=== PATIENT | male | born 1975 | race African-American/Black ===

== ENCOUNTER 2020-09-28 15:34 | Inpatient (IN) | payer SELFPAY ==
[~2020-09-28] VITALS: Ht 177.8 cm; Wt 88.2 kg
[~2020-09-28 15:34] MED LIST: LISI10TA16 PO
--- NOTE | 2020-09-28 16:12 | EKG ---
[facility] [address] [place] [address] Test Date: 2020-09-28 Test Time: 16:08:25 Pat Name: FRANCES FELIX Department: Room: Gender: M Shovel Operator: : 1975 Requested By: IDA DOMINGUEZ Order Number: [id number] Reading MD: Measurements Intervals [place] Rate: 112 P: 38 MI: 104 QRS: -2 QRSD: 88 T: -84 QT: 336 QTc: 460 Interpretive Statements SINUS TACHYCARDIA LEFT ATRIAL ABNORMALITY LEFTWARD AXIS QRS(T) CONTOUR ABNORMALITY CONSIDER ANTEROLATERAL MYOCARDIAL DAMAGE ABNORMAL ECG RI6.01 No previous ECG available for comparison
[2020-09-28 16:17] LABS: BASO # 0.1 x10^3/uL (0.0-0.2); BASO % 1 % (0-3); EOS % 0 % (0-3); HEMATOCRIT 43.8 % (39.0-53.0); HEMOGLOBIN 14.4 g/dL (13.0-17.5); LYMPH # 0.7 x10^3/uL (1.0-4.8); LYMPH % 9 % (24-48); MEAN CORPUSCULAR HEMOGLOBIN 31 pg (25-35); MEAN CORPUSCULAR HGB CONC 33 g/dL (31-37); MEAN CORPUSCULAR VOLUME 94 fL (79-100); MONO # 0.5 x10^3/uL (0.0-1.1); MONO % 6 % (0-9); NEUT # 6.6 x10^3/uL (1.8-7.7); NEUT % 84 % (31-73); PLATELET COUNT 171 x10^3/uL (140-400); RED BLOOD COUNT 4.66 x10^6/uL (4.30-5.70); RED CELL DISTRIBUTION WIDTH 15.1 % (11.5-14.5); WHITE BLOOD COUNT 7.8 x10^3/uL (4.0-11.0)
[2020-09-28 16:43] LABS: CALCIUM 8.9 mg/dL (8.5-10.1); CREATININE 6.9 mg/dL (0.7-1.3); GFR 10.4; POTASSIUM 4.2 mmol/L (3.5-5.1)
[2020-09-28 16:48] LABS: ALBUMIN 3.5 g/dL (3.4-5.0); MAGNESIUM 2.5 mg/dL (1.8-2.4); TOTAL BILIRUBIN 0.9 mg/dL (0.2-1.0); TOTAL PROTEIN 7.1 g/dL (6.4-8.2)
--- NOTE | 2020-09-28 17:15 | RAD ---
XR CHEST 1V History: Chest pain. Comparison: None. Technique: AP radiograph of the chest. Findings: Metallic BB projects over the left anterior chest and scapula. Lungs are adequately inflated. Hazy bilateral lower lobe opacities. With linear streaky opacities lef t midlung. No pleural effusion or pneumothorax. Prominent cardiac silhouette. Pulmonary vasculature i s within normal limits. Osseous structures are unremarkable. Impression: 1. Hazy bilateral lower lobe opacities may represent infection or edema. Electronically signed by: Ricardo Amanda MD (09/28/2020 5:13 PM) [facility]
--- NOTE | 2020-09-28 17:34 | PHYS DOC ---
Past Medical History Past Medical History: Hypertension, Renal Failure Past Surgical History: Other Smoking Status: Never Smoker Alcohol Use: None Drug Use: None Adult General Chief Complaint Chief Complaint: SHORTNESS OF BREATH HPI HPI Patient is a 45 year old male with no personal history of hypertension who presents emergency department complaint of new onset of lower extremity swelling. Patient states he has not been on his antihypertensive for 3 years and over the last week he has noted a worsening sensation of bilateral lower extremity edema as well as shortness of breath primarily lays flat or when he is attempting to ambulate. Patient states that he is also been eating poorly and smoking cigarettes again. Denies any chest pain, fever, chills, nausea or vomiting. Review of Systems Review of Systems Constitutional: Denies fever or chills [] Eyes: Denies change in visual acuity, redness, or eye pain [] HENT: Denies nasal congestion or sore throat [] Respiratory: Denies cough or shortness of breath [] Cardiovascular: No additional information not addressed in HPI [] GI: Denies abdominal pain, nausea, vomiting, bloody stools or diarrhea [] : Denies dysuria or hematuria [] Musculoskeletal: Denies back pain or joint pain [] Integument: Denies rash or skin lesions [] Neurologic: Denies headache, focal weakness or sensory changes [] Endocrine: Denies polyuria or polydipsia [] All other systems were reviewed and found to be within normal limits, except as documented in this note. Allergies Allergies Allergies Coded Allergies Type Severity Reaction Last Updated Verified No Known Drug Allergies 12/02/14 No Physical Exam Physical Exam Constitutional: Well developed, well nourished, no acute distress, non-toxic appearance. [] HENT: Normocephalic, atraumatic, bilateral external ears normal, oropharynx moist, no oral exudates, nose normal. [] Eyes: PERRLA, EOMI, conjunctiva normal, no discharge. [] Neck: Normal range of motion, no tenderness, supple, no stridor. [] Cardiovascular:Heart rate regular rhythm, no murmur [] Lungs & Thorax: Bilateral breath sounds clear to auscultation [] Abdomen: Bowel sounds normal, soft, no tenderness, no masses, no pulsatile masses. [] Skin: Warm, dry, no erythema, no rash. [] Back: No tenderness, no CVA tenderness. [] Extremities: No tenderness, no cyanosis, no clubbing, ROM intact, no edema. [] Neurologic: Alert and oriented X 3, normal motor function, normal sensory function, no focal deficits noted. [] Psychologic: Affect normal, judgement normal, mood normal. [] Current Patient Data Lab Values Laboratory Tests Test 09/28/20 16:06 White Blood Count 7.8 x10^3/uL (4.0-11.0) Red Blood Count 4.66 x10^6/uL (4.30-5.70) Hemoglobin 14.4 g/dL (13.0-17.5) Hematocrit 43.8 % (39.0-53.0) Mean Corpuscular Volume 94 fL (79-100) Mean Corpuscular Hemoglobin 31 pg (25-35) Mean Corpuscular Hemoglobin Concent 33 g/dL (31-37) Red Cell Distribution Width 15.1 % (11.5-14.5) H Platelet Count 171 x10^3/uL (140-400) Neutrophils (%) (Auto) 84 % (31-73) H Lymphocytes (%) (Auto) 9 % (24-48) L Monocytes (%) (Auto) 6 % (0-9) Eosinophils (%) (Auto) 0 % (0-3) Basophils (%) (Auto) 1 % (0-3) Neutrophils # (Auto) 6.6 x10^3/uL (1.8-7.7) Lymphocytes # (Auto) 0.7 x10^3/uL (1.0-4.8) L Monocytes # (Auto) 0.5 x10^3/uL (0.0-1.1) Eosinophils # (Auto) 0.0 x10^3/uL (0.0-0.7) Basophils # (Auto) 0.1 x10^3/uL (0.0-0.2) Sodium Level 147 mmol/L (136-145) H Potassium Level 4.2 mmol/L (3.5-5.1) Chloride Level 109 mmol/L (98-107) H Carbon Dioxide Level 23 mmol/L (21-32) Anion Gap 15 (6-14) H Blood Urea Nitrogen 43 mg/dL (8-26) H Creatinine 6.9 mg/dL (0.7-1.3) H Estimated GFR (Cockcroft-Gault) 10.4 BUN/Creatinine Ratio 6 (6-20) Glucose Level 135 mg/dL (70-99) H Calcium Level 8.9 mg/dL (8.5-10.1) Magnesium Level 2.5 mg/dL (1.8-2.4) H Total Bilirubin 0.9 mg/dL (0.2-1.0) Aspartate Amino Transferase (AST) 17 U/L (15-37) Alanine Aminotransferase (ALT) 34 U/L (16-63) Alkaline Phosphatase 120 U/L (46-116) H Troponin I Quantitative 0.037 ng/mL (0.000-0.055) YR-Den-T-Type Natriuretic Peptide 59403 pg/mL (0-124) H Total Protein 7.1 g/dL (6.4-8.2) Albumin 3.5 g/dL (3.4-5.0) Albumin/Globulin Ratio 1.0 (1.0-1.7) Lipase 193 U/L (73-393) Laboratory Tests 09/28/20 16:06 Laboratory Tests 09/28/20 16:06 EKG EKG [] Radiology/Procedures Radiology/Procedures XR CHEST 1V History: Chest pain. Comparison: None. Technique: AP radiograph of the chest. Findings: Metallic BB projects over the left anterior chest and scapula. Lungs are adequately inflated. Hazy bilateral lower lobe opacities. With linear streaky opacities left midlung. No pleural effusion or pneumothorax. Prominent cardiac silhouette. Pulmonary vasculature is within normal limits. Osseous structures are unremarkable. Impression: 1. Hazy bilateral lower lobe opacities may represent infection or edema. Electronically signed by: Ricardo Amanda MD (09/28/2020 5:13 PM) [facility] DICTATED and SIGNED BY: RICARDO AMANDA MD DATE: 09/28/20 [id number] Course & Med Decision Making Course & Med Decision Making Pertinent Labs and Imaging studies reviewed. (See chart for details) 45M presenting with acute bilateral lower extremity edema which most likely represents an acute CHF for chronic kidney disease exacerbation. Will obtain labs, BMP and chest x-ray. Patient noted to have an acutely elevated creatinine at 6.9 as well as elevated BNP at 17,000 which raise concern for both acute CHF exacerbation and volume overload secondary to chronic kidney disease. At this time will give Lasix and plan for admission [place] Disclaimer Dragon Disclaimer This electronic medical record was generated, in whole or in part, using a voice recognition dictation system. Departure Departure Impression: Primary Impression: Acute CHF Additional Impression: Acute kidney failure Disposition: ADMITTED INPATIENT Condition: GOOD Referrals: NO PCP (PCP) Problem Qualifiers IDA DOMINGUEZ MD Sep 28, 2020 17:34
--- NOTE | 2020-09-28 17:43 | PDOC1 ---
History and Physical Date of Admission Date of Admission DATE: 09/28/20 TIME: 17:41 Identification/Chief Complaint Chief Complaint Leg swelling Source Source: Patient History of Present Illness History of Present Illness Mr Rajan is a 45 year old male w/ PMHx hypertension who presents emergency department complaint of new onset of lower extremity swelling. He notes suddenly after eating a bag of pretzels a week ago he awoke with bilateral lower extremity edema as well as shortness of breath primarily lays flat or when he is attempting to ambulate. Patient states that he is also been eating poorly and smoking cigarettes again. He is stressed. He has not had a medication refill for his blood pressure in 3 years and knows he was told he may have kidney disease, notes his father of kidney disease. He has been taking his brother's lisinopril occasionally. He has no recent sick contacts or travel and he denies any chest pain, fever, chills, nausea or vomiting. Blood pressure on my examination is 213/148. EKG appears sinus tachycardia rate of 112 bpm leftward axis T wave inversions in precordial leads and flattening in I,II,III new since EKG in 2014 Chest radiograph with bilateral lower lobe hazy opacities. Labs with WBC 7.8, Hb 14.4, Platelets 171, Na 147, K 4.2, Mg 2.5, BUN 43, Cr 6.9, glucose 135. Phos 3.5, Trop 0.037, and NT pro-BNP 36935. Admitted for further care. Past Medical History Cardiovascular: HTN Past Surgical History Past Surgical History: No pertinent history Family History Family History: High Cholestrol, Hypertension, Kidney Disease Social History Smoke: 1 pack per day ALCOHOL: social Drugs: None Current Problem List Problem List Problems Medical Problems: (1) Acute CHF Status: Acute (2) Acute kidney failure Status: Acute Current Medications Current Medications Current Medications Furosemide (Lasix) 40 mg 1X ONCE IVP ; Start 09/28/20 at 17:45; Stop 09/28/20 at 17:46 Ondansetron HCl (Zofran) 4 mg PRN Q8HRS PRN IV NAUSEA/VOMITING; Start 09/28/20 at 17:45; Stop 09/29/20 at 17:44 Morphine Sulfate (Morphine Sulfate) 4 mg PRN Q2HR PRN IV PAIN; Start 09/28/20 at 17:45; Stop 09/29/20 at 17:44 Active Scripts Active Reported Lisinopril 10 Mg Tablet Unknown Dose PO DAILY Allergies Allergies: Coded Allergies: No Known Drug Allergies (Unverified , 12/02/14) ROS General: YES: Fatigue, Malaise; No: Chills, Night Sweats, Appetite, Other PSYCHOLOGICAL ROS: YES: Anxiety, Decreased libido, Depression, Irritablity, Mood Swings; No: Behavioral Disorder, Concentration difficultie, Disorientation, Hallucinations, Hostility, Memory difficulties, Obsessive thoughts, Physical abuse, Sexual abuse, Sleep disturbances, Suicidal ideation, Other Eyes: No Blurry vision, No Decreased vision, No Double vision, No Dry eyes, No Excessive tearing, No Eye Pain, No Itchy Eyes, No Loss of vision, No Photophobia, No Scotomata, No Uses contacts, No Uses glasses, No Other HEENT: No: Heacaches, Visual Changes, Hearing change, Nasal congestion, Nasal discharge, Oral lesions, Sinus pain, Sore Throat, Epistaxis, Sneezing, Snoring, Tinnitus, Vertigo, Vocal changes, Other ALLERGY AND IMMUNOLOGY: No: Hives, Insect Bite Sensitivity, Itchy/Watery Eyes, Nasal Congestion, Post Nasal Drip, Seasonal Allergies, Other Hematological and Lymphatic: No: Bleeding Problems, Blood Clots, Blood Transfusions, Brusing, Night Sweats, Pallor, Swollen Lymph Nodes, Other ENDOCRINE: No: Breast Changes, Galactorrhea, Hair Pattern Changes, Hot Flashes, Malaise/lethargy, Mood Swings, Palpitations, Polydipsia/polyuria, Skin Changes, Temperature Intolerance, Unexpected Weight Changes, Other Breast: No New/Changing Breast Lumps, No Nipple changes, No Nipple discharge, No Other Respiratory: YES: Orthopnea, Shortness of breath, SOB with excertion, Tachypnea ; No: Cough, Hemoptysis, Pleuritic Pain, Sputum Changes, Stridor, Wheezing, Other Cardiovascular: yes Orthopnea, yes Paroxysmal Noc. Dyspnea, yes Edema; No Chest Pain, No Palpitations, No Lt Headedness, No Other Gastrointestinal: No Nausea, No Vomiting, No Abdominal Pain, No Diarrhea, No Constipation, No Melena, No Hematochezia, No Other Genitourinary: No Dysuria, No Frequency, No Incontinence, No Hematuria, No Retention, No Discharge, No Urgency, No Pain, No Flank Pain, No Other, No , No , No , No , No , No , No Musculoskeletal: Yes Muscular Weakness; No Gait Disturbance, No Joint Pain, No Joint Stiffness, No Joint Swelling, No Muscle Pain, No Pain In:, No Swelling In:, No Other Neurological: No Behavorial Changes, No Bowel/Bladder ControlChng, No Confusion, No Dizziness, No Gait Disturbance, No Headaches, No Impaired Coord/balance, No Memory Loss, No Numbness/Tingling, No Seizures, No Speech Problems, No Tremors, No Visual Changes, No Weakness, No Other Skin: No Dry Skin, No Eczema, No Hair Changes, No Lumps, No Mole Changes, No Mottling, No Nail Changes, No Pruritus, No Rash, No Skin Lesion Changes, No Other, No Acne Physical Exam General: Alert, Oriented X3, Cooperative, moderate distress HEENT: Atraumatic, PERRLA, EOMI, Mucous membr. moist/pink Lungs: Other (Bibasilar crackles) Heart: S1S2, RRR, no thrills, no rubs, no gallops, no murmurs Abdomen: Normal bowel sounds, Soft, No tenderness, No hepatosplenomegaly, No masses Extremities: No clubbing, No cyanosis, Normal pulses, No tenderness/swelling, Other (3+ edema to knees) Skin: No rashes, No breakdown, No significant lesion Neuro: Normal gait, Normal speech, Strength at 5/5 X4 ext, Normal tone, Sensation intact, Cranial nerves 3-12 NL, Reflexes 2+ Psych/Mental Status: Mental status NL, Mood NL, Other (Anxious) Labs Labs Laboratory Tests Test 09/28/20 16:06 White Blood Count 7.8 x10^3/uL (4.0-11.0) Red Blood Count 4.66 x10^6/uL (4.30-5.70) Hemoglobin 14.4 g/dL (13.0-17.5) Hematocrit 43.8 % (39.0-53.0) Mean Corpuscular Volume 94 fL (79-100) Mean Corpuscular Hemoglobin 31 pg (25-35) Mean Corpuscular Hemoglobin Concent 33 g/dL (31-37) Red Cell Distribution Width 15.1 % (11.5-14.5) Platelet Count 171 x10^3/uL (140-400) Neutrophils (%) (Auto) 84 % (31-73) Lymphocytes (%) (Auto) 9 % (24-48) Monocytes (%) (Auto) 6 % (0-9) Eosinophils (%) (Auto) 0 % (0-3) Basophils (%) (Auto) 1 % (0-3) Neutrophils # (Auto) 6.6 x10^3/uL (1.8-7.7) Lymphocytes # (Auto) 0.7 x10^3/uL (1.0-4.8) Monocytes # (Auto) 0.5 x10^3/uL (0.0-1.1) Eosinophils # (Auto) 0.0 x10^3/uL (0.0-0.7) Basophils # (Auto) 0.1 x10^3/uL (0.0-0.2) Sodium Level 147 mmol/L (136-145) Potassium Level 4.2 mmol/L (3.5-5.1) Chloride Level 109 mmol/L (98-107) Carbon Dioxide Level 23 mmol/L (21-32) Anion Gap 15 (6-14) Blood Urea Nitrogen 43 mg/dL (8-26) Creatinine 6.9 mg/dL (0.7-1.3) Estimated GFR (Cockcroft-Gault) 10.4 BUN/Creatinine Ratio 6 (6-20) Glucose Level 135 mg/dL (70-99) Calcium Level 8.9 mg/dL (8.5-10.1) Magnesium Level 2.5 mg/dL (1.8-2.4) Total Bilirubin 0.9 mg/dL (0.2-1.0) Aspartate Amino Transf (AST/SGOT) 17 U/L (15-37) Alanine Aminotransferase (ALT/SGPT) 34 U/L (16-63) Alkaline Phosphatase 120 U/L (46-116) Troponin I Quantitative 0.037 ng/mL (0.000-0.055) DP-Joe-U-Type Natriuretic Peptide 26598 pg/mL (0-124) Total Protein 7.1 g/dL (6.4-8.2) Albumin 3.5 g/dL (3.4-5.0) Albumin/Globulin Ratio 1.0 (1.0-1.7) Lipase 193 U/L (73-393) Laboratory Tests Test 09/28/20 16:06 White Blood Count 7.8 x10^3/uL (4.0-11.0) Red Blood Count 4.66 x10^6/uL (4.30-5.70) Hemoglobin 14.4 g/dL (13.0-17.5) Hematocrit 43.8 % (39.0-53.0) Mean Corpuscular Volume 94 fL (79-100) Mean Corpuscular Hemoglobin 31 pg (25-35) Mean Corpuscular Hemoglobin Concent 33 g/dL (31-37) Red Cell Distribution Width 15.1 % (11.5-14.5) Platelet Count 171 x10^3/uL (140-400) Neutrophils (%) (Auto) 84 % (31-73) Lymphocytes (%) (Auto) 9 % (24-48) Monocytes (%) (Auto) 6 % (0-9) Eosinophils (%) (Auto) 0 % (0-3) Basophils (%) (Auto) 1 % (0-3) Neutrophils # (Auto) 6.6 x10^3/uL (1.8-7.7) Lymphocytes # (Auto) 0.7 x10^3/uL (1.0-4.8) Monocytes # (Auto) 0.5 x10^3/uL (0.0-1.1) Eosinophils # (Auto) 0.0 x10^3/uL (0.0-0.7) Basophils # (Auto) 0.1 x10^3/uL (0.0-0.2) Sodium Level 147 mmol/L (136-145) Potassium Level 4.2 mmol/L (3.5-5.1) Chloride Level 109 mmol/L (98-107) Carbon Dioxide Level 23 mmol/L (21-32) Anion Gap 15 (6-14) Blood Urea Nitrogen 43 mg/dL (8-26) Creatinine 6.9 mg/dL (0.7-1.3) Estimated GFR (Cockcroft-Gault) 10.4 BUN/Creatinine Ratio 6 (6-20) Glucose Level 135 mg/dL (70-99) Calcium Level 8.9 mg/dL (8.5-10.1) Magnesium Level 2.5 mg/dL (1.8-2.4) Total Bilirubin 0.9 mg/dL (0.2-1.0) Aspartate Amino Transf (AST/SGOT) 17 U/L (15-37) Alanine Aminotransferase (ALT/SGPT) 34 U/L (16-63) Alkaline Phosphatase 120 U/L (46-116) Troponin I Quantitative 0.037 ng/mL (0.000-0.055) HN-Drq-G-Type Natriuretic Peptide 16365 pg/mL (0-124) Total Protein 7.1 g/dL (6.4-8.2) Albumin 3.5 g/dL (3.4-5.0) Albumin/Globulin Ratio 1.0 (1.0-1.7) Lipase 193 U/L (73-393) Images Images Chest radiograph: Metallic BB projects over the left anterior chest and scapula. Lungs are adequately inflated. Hazy bilateral lower lobe opacities. With linear streaky opacities left midlung. No pleural effusion or pneumothorax. Prominent cardiac silhouette. Pulmonary vasculature is within normal limits. Osseous stru ctures are unremarkable. Impression: 1. Hazy bilateral lower lobe opacities may represent infection or edema. VTE Prophylaxis Ordered VTE Prophylaxis Devices: No VTE Pharmacological Prophylaxi: Yes Assessment/Plan Assessment/Plan A/P: Hypertensive emergency - with acute CHF and renal failure. IV hydralazine, nitropaste. Will avoid JOSE GUADALUPE/ARB given his renal failure. BB when more stable Acute diastolic CHF - likely due to uncontrolled HTN, no ischemic workup. CXR and BNP consistent with clinical dx. Bilateral LE edema - with shortness of breath this is classic. IV lasix ordered BID. Cardiology consulted with elevated troponin. Imdur/hydralazine, ASA, statin, BB when stable LUCILLE - vasomotor nephropathy likely from cardiorenal syndrome. Will order renal ultrasounds to assess for medical renal disease. If his GFR does not improve with diuresis will need nephrology consultation. Of concern he did appear to have renal impairment consistent with CKD 3b 6 years ago. Elevated troponin - likely demand ischemia due to above Abnormal CXR - likely CHF related, no clinical pneumonia on examination or history Hyperglycemia - will check A1c, TSH Smoker - counseled on cessation, offered nicotine patch Anxiety - prn hydroxyzine. Will need counseling outpatient FEN - Cardiac diet PPX - heparin FULL CODE Dispo -inpatient for above Justifications for Admission Other Justification BETO HOLLAND MD Sep 28, 2020 17:43
[2020-09-28] MEDS ORDERED: MORPHINE SULFATE 4 MG/ML VIAL. IV PRN (17:45)
[2020-09-28] MEDS ORDERED: ONDANSETRON PF 4 MG/2 ML VIAL. IV PRN ×2 (17:45)
[2020-09-28] MEDS ORDERED: FUROSEMIDE 40 MG/4 ML VIAL. IVP ONE (17:45)
[2020-09-28] MEDS ORDERED: ASPIRIN 325 MG TABLET PO ONE (18:00)
[2020-09-28 20:00] VITALS: BP 194/144
[2020-09-28] MEDS ORDERED: ACETAMINOPHEN 325 MG TABLET. PO PRN (20:30)
[2020-09-28] MEDS ORDERED: NICOTINE 21MG PATCH. TD PRN (20:30)
[2020-09-28] MEDS ORDERED: hydrOXYzine 10 MG TABLET PO PRN (20:30)
[2020-09-28] MEDS: ZOLPIDEM 5 MG TABLET. PO PRN (20:59)
[2020-09-28] MEDS: ATORVASTATIN CALCIUM 20 MG TABLET PO SCH (20:59)
[2020-09-28] MEDS: HEPARIN for SUB-Q USE 5,000 UNIT/ML VIAL. SQ SCH (21:05)
[2020-09-28] MEDS ORDERED: NITROGLYCERIN OINT 1 GM PACKET. TP SCH (22:00)
--- NOTE | 2020-09-28 22:20 | NUR ---
The patient, FRANCES FELIX, 45 y/o, M admitted by BETO HOLLAND MD, was given written information regarding hospital policies, unit procedures and contact persons. Valuables were checked and has watch, wallet, pants, shirt, jacket, and hat.
[2020-09-28 23:00] VITALS: BP 191/144
[2020-09-28] MEDS: hydrALAZINE 20 MG/ML VIAL. IVP PRN (23:16)
--- NOTE | 2020-09-28 23:51 | RAD ---
EXAM: RENAL/RETROPERITONAL ULTRASOUND. HISTORY: Acute renal failure. COMPARISON: 12/02/2014. FINDINGS: Ultrasound of the kidneys, bladder and retroperitoneum was performed. The right kidney measures 10.9 cm. Increased cortical echogenicity indicates intrinsic renal disease. Cortical thickness is preserved. There is no hydronephrosis. The left kidney measures at least 8.3 cm. Cortical echogenicity is increased. Cortical thickness is g rossly preserved. There is no hydronephrosis. A hypoechoic mass anteriorly in the upper pole measures 2.3 cm. There is no internal perfusion and a calculated cyst is favored. Images of the bladder reveal no gross abnormality. The abdominal aorta and inferior vena cava are ronald ssly patent and normal in caliber. There is a small amount of ascites. A right pleural effusion is no shawn. IMPRESSION: 1. Increased renal cortical echogenicity is consistent with intrinsic renal disease. No hydronephrosi s. 2. A 2.3 cm lesion within the left kidney most likely reflects a complicated cyst. It was not well se en previously, though visualization was limited. Comparison with available prior studies to assess st ability. 3. Small ascites. Right pleural effusion. Electronically signed by: Padmaja Guzman MD (09/28/2020 11:48 PM) [facility]
[2020-09-29] VITALS (15 sets, daily range): BP systolic 130–199; BP diastolic 91–124
[2020-09-29] MEDS: hydrALAZINE 20 MG/ML VIAL. IVP PRN (03:32)
[2020-09-29] MEDS: HEPARIN for SUB-Q USE 5,000 UNIT/ML VIAL. SQ SCH ×3 (06:02→20:51)
[2020-09-29 06:12] LABS: CREATININE 6.6 mg/dL (0.7-1.3)
[2020-09-29] MEDS: ISOSORBIDE MONONITRATE ER 30 MG TAB.ER.24H PO SCH (08:19)
[2020-09-29 10:28] LABS: AMPHETAMINE/METHAMPHETAMINE NEG (NEG); BARBITURATES NEG (NEG); BENZODIAZEPINES NEG (NEG); CANNABINOIDS POS (NEG); COCAINE NEG (NEG); METHADONE NEG (NEG); OPIATES NEG (NEG); PHENCYCLIDINE NEG (NEG)
[2020-09-29 10:40] LABS: BACTERIA,URINE 0 /HPF (0-FEW); BILIRUBIN,URINE NEGATIVE (NEG); CLARITY,URINE CLEAR; COLOR,URINE YELLOW; NITRITE,URINE NEGATIVE (NEG); PROTEIN,URINE >=300 mg/dL (NEG-TRACE); RBC,URINE 0 /HPF (0-2); UROBILINOGEN,URINE 0.2 mg/dL (0.2 mg/dL); WBC,URINE 0 /HPF (0-4)
--- NOTE | 2020-09-29 10:50 | PDOC2 ---
YAZAN BALLARD [employer] SALES CONSULTANT 09/29/20 1050: CARDIAC CONSULT DATE OF CONSULT Date of Consult DATE: 09/29/20 TIME: 10:28 REASON FOR CONSULT Reason for Consult: CHF exacerbation REFERRING PHYSICIAN Referring Physician: Gema SOURCE Source: Chart review, Patient HISTORY OF PRESENT ILLNESS HISTORY OF PRESENT ILLNESS This is a pleasant 45 yo male admitted for complains of shortness of breath. He has been SOA in the last month and has gotten worse in in the last 2 days. Reportsof tightness around his belly, PND, orthopnea, increased leg swelling, and GONSALES. No chest pain or palpitations. He tried to take a water pill about 2 days ago just one time as he does not take any routine medications., The last time he took routine BP meds was a yr ago. He was taking BP meds for about 5 yrs until he quit. He said he simply could not afford to go to the doctor. He quit smoking a month ago and uses marijuana otherwise denies any other recreational drug use. He took lisinopril and atenolol in the past. No recent falls or injury. Denies any exposure to covid-19 or infection before and no fever or chills. No nausea vomiting or diarrhea. Denies anosmia and ageusia. Denies any CV disease nor arrhythmias in the past. No hx of VTE. He eats a lot of fast food and processed food. PAST MEDICAL HISTORY Cardiovascular: HTN, Hyperlipidemia Pulmonary: No pertinent hx CENTRAL NERVOUS SYSTEM: Other (No pertinent history) GI: No pertinent hx Heme/Onc: No pertinent hx Hepatobiliary: No pertinent hx Psych: No pertinent hx Musculoskeletal: Other (no pertinent history) Rheumatologic: No pertinent hx Infectious disease: No pertinent hx ENT: Allergic Rhinitis Renal/: Chronic renal insuff (CKD3), Other (priapism) Endocrine: No pertinent hx Dermatology: No pertinent hx PAST SURGICAL HISTORY Past Surgical History: No pertinent history FAMILY HISTORY Family History noncontributory karen CV SOCIAL HISTORY Smoke: Quit (a month ago 2 pk a day smoker) ALCOHOL: occassional Drugs: Marijuana Lives: Friends CURRENT MEDICATIONS CURRENT MEDICATIONS Current Medications Medications (Trade) Dose Ordered Sig/Lisandro Route PRN Reason Start Time Stop Time Status Last Admin Dose Admin Furosemide (Lasix) 40 mg 1X ONCE IVP 09/28/20 17:45 09/28/20 17:46 DC 09/28/20 18:14 Hydralazine HCl (Apresoline Inj) 10 mg PRN Q4HRS PRN IVP HTN 09/28/20 18:00 09/29/20 03:32 Atorvastatin Calcium (Lipitor) 20 mg QHS PO 09/28/20 21:00 09/28/20 20:59 Heparin Sodium (Porcine) (Heparin Sodium) 5,000 unit Q8HRS SQ 09/28/20 22:00 09/29/20 06:02 Aspirin (Baldo Aspirin) 325 mg DAILY ONCE PO 09/28/20 18:00 09/28/20 18:07 DC 09/28/20 18:14 Zolpidem Tartrate (Ambien) 5 mg PRN QHS PRN PO INSOMNIA 09/28/20 20:30 09/28/20 20:59 Hydroxyzine HCl (Atarax) 10 mg PRN Q6HRS PRN PO ITCHING 09/28/20 20:30 09/28/20 20:59 Nitroglycerin (Nitro-Bid Oint) 1 inch Q8HRS TP 09/28/20 22:00 09/28/20 22:01 DC 09/28/20 20:59 Isosorbide Mononitrate (Imdur) 30 mg DAILY PO 09/29/20 09:00 09/29/20 08:19 Hydralazine HCl (Apresoline) 50 mg TID PO 09/28/20 21:00 09/29/20 08:19 ALLERGIES ALLERGIES: Coded Allergies: No Known Drug Allergies (Unverified , 12/02/14) ROS Review of System 14 point ROS evaluated with pertinent positives noted per HPI PHYSICAL EXAM General: Alert, Oriented X3, Cooperative, No acute distress HEENT: Atraumatic, Mucous membr. moist/pink, Other (JVD) Lungs: Other (diminished bases) Heart: Regular rate (sinus tachycardia), Normal S1, Normal S2, Other (S3) Abdomen: Soft, Other (protuberant) Extremities: No cyanosis, Other (3+ bilateral LE pitting edema) Skin: No breakdown, No significant lesion Neuro: Normal speech, Sensation intact Psych/Mental Status: Mental status NL, Mood NL MUSCULOSKELETAL: Full range of motion without pain VITALS/I&O VITALS/I&O: Vital Signs Date Time Temp Pulse Resp B/P (MAP) Pulse Ox O2 Delivery O2 Flow Rate FiO2 09/29/20 08:19 116 176/114 09/29/20 07:00 99.5 22 98 Room Air 99.5 I & O 09/28/20 09/28/20 09/29/20 15:00 23:00 07:00 Intake Total 760 ml Output Total 3100 ml Balance -2340 ml LABS Lab: Laboratory Tests Test 09/28/20 16:06 09/28/20 18:43 09/29/20 03:40 White Blood Count 7.8 x10^3/uL (4.0-11.0) Red Blood Count 4.66 x10^6/uL (4.30-5.70) Hemoglobin 14.4 g/dL (13.0-17.5) Hematocrit 43.8 % (39.0-53.0) Mean Corpuscular Volume 94 fL (79-100) Mean Corpuscular Hemoglobin 31 pg (25-35) Mean Corpuscular Hemoglobin Concent 33 g/dL (31-37) Red Cell Distribution Width 15.1 % (11.5-14.5) H Platelet Count 171 x10^3/uL (140-400) Neutrophils (%) (Auto) 84 % (31-73) H Lymphocytes (%) (Auto) 9 % (24-48) L Monocytes (%) (Auto) 6 % (0-9) Eosinophils (%) (Auto) 0 % (0-3) Basophils (%) (Auto) 1 % (0-3) Neutrophils # (Auto) 6.6 x10^3/uL (1.8-7.7) Lymphocytes # (Auto) 0.7 x10^3/uL (1.0-4.8) L Monocytes # (Auto) 0.5 x10^3/uL (0.0-1.1) Eosinophils # (Auto) 0.0 x10^3/uL (0.0-0.7) Basophils # (Auto) 0.1 x10^3/uL (0.0-0.2) Sodium Level 147 mmol/L (136-145) H 147 mmol/L (136-145) H Potassium Level 4.2 mmol/L (3.5-5.1) 4.0 mmol/L (3.5-5.1) Chloride Level 109 mmol/L (98-107) H 108 mmol/L (98-107) H Carbon Dioxide Level 23 mmol/L (21-32) 22 mmol/L (21-32) Anion Gap 15 (6-14) H 17 (6-14) H Blood Urea Nitrogen 43 mg/dL (8-26) H 41 mg/dL (8-26) H Creatinine 6.9 mg/dL (0.7-1.3) H 6.6 mg/dL (0.7-1.3) H Estimated GFR (Cockcroft-Gault) 10.4 11.0 BUN/Creatinine Ratio 6 (6-20) Glucose Level 135 mg/dL (70-99) H 105 mg/dL (70-99) H Calcium Level 8.9 mg/dL (8.5-10.1) 9.0 mg/dL (8.5-10.1) Phosphorus Level 3.5 mg/dL (2.6-4.7) Magnesium Level 2.5 mg/dL (1.8-2.4) H Total Bilirubin 0.9 mg/dL (0.2-1.0) Aspartate Amino Transferase (AST) 17 U/L (15-37) Alanine Aminotransferase (ALT) 34 U/L (16-63) Alkaline Phosphatase 120 U/L (46-116) H Troponin I Quantitative 0.037 ng/mL (0.000-0.055) 0.032 ng/mL (0.000-0.055) 0.036 ng/mL (0.000-0.055) XH-Unr-M-Type Natriuretic Peptide 77359 pg/mL (0-124) H Total Protein 7.1 g/dL (6.4-8.2) Albumin 3.5 g/dL (3.4-5.0) Albumin/Globulin Ratio 1.0 (1.0-1.7) Lipase 193 U/L (73-393) Laboratory Tests 09/28/20 16:06 Laboratory Tests 09/28/20 16:06 09/29/20 03:40 ASSESSMENT/PLAN ASSESSMENT/PLAN 1. 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 Still labile 2. Severe LUCILLE on CKD3 3. 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 HLP 5. Tobaccoism : heavy smoker and quit a month ago 6. Marijuana use 7. Noncompliance: last routine BP meds over a yr ago at least Recommendations 1. Continue lasix therapy. Consult nephrology, may need HD 2. TTE, TSH and FLP 3. Smoking and marijuana cessation. diet modification 4. Continue imdur and hydralazine. Will add Coreg and norvasc. KANIKA SANTOS MD 09/30/20 1256: CARDIAC CONSULT ASSESSMENT/PLAN ASSESSMENT/PLAN Patient seen and examined 09/29/2020. Agree with RISK MANAGEMENT SPECIALIST's assessment and plan. Continue diuresis for acute on chronic combined systolic and diastolic heart failure. Agree with adding Coreg and Norvasc for better blood pressure control. 2D echo showed LVEF 25 to 30%. Nephrology consulted for acute on chronic renal insufficiency. Plan ischemic evaluation outpatient. Thank you for your consultation. YAZAN BALLARD [employer] SALES CONSULTANT Sep 29, 2020 10:50 KANIKA SANTOS MD Sep 30, 2020 12:56
[2020-09-29 11:29] LABS: CHOLESTEROL/HDL RATIO 2.8
[2020-09-29] MEDS: amLODIPine BESYLATE 10 MG TABLET PO SCH (11:33)
[2020-09-29] MEDS: CARVEDILOL 6.25 MG TABLET. PO SCH ×2 (11:33→18:20)
[2020-09-29] MEDS: FUROSEMIDE 40 MG/4 ML VIAL. IVP SCH ×2 (11:33→15:23)
[2020-09-29 12:03] LABS: PROTHROMBIN TIME PATIENT 14.7 SEC (11.7-14.0)
[2020-09-29] MEDS ORDERED: PERFLUTREN PROTEIN-A MICROSPHR 0.22 MG/ML 3 ML VIAL. IV ONE ×2 (12:24→12:45)
--- NOTE | 2020-09-29 12:32 | PDOC2 ---
CONSULT Date of Consult Date of Consult DATE: 09/29/20 TIME: 12:26 Reason for Consult Reason for Consult: HTN AND RENAL FAILURE Referring Physician Referring Physician: SKYLER Identification/Chief Complaint Chief Complaint SOB Source Source: Chart review, Patient History of Present Illness Reason for Visit: THIS IS A 45 YR OLD WITH SOB FOR SEVERAL WEEKS BUT WORSE LAST COUPLE DAYS. ALSO HAS LE EDEMA. BP EXCESSIVELY HIGH ON PRESENTATION AND FINDINGS AND EXAM C/W CHF. HAS HX OF NON COMPLIANCE. HAS NOT BEEN SEEING ANY DOCTORS AND NOT TAKING HIS MEDS. CR OF 6.9. NO ANEMIA. UA POS FOR PROT AND TRACE RBC. CR WAS 2.7 IN 2015. SONO C/W LEFT RENAL ATROPHY AND OVERALL CMRD. NO NEPHROTOXINS NOTED. NO OTHER HX. UNDERGOING CARDIOLOGY EVALUATION AT THIS TIME Past Medical History Cardiovascular: HTN, Hyperlipidemia Pulmonary: No pertinent hx CENTRAL NERVOUS SYSTEM: Other (No pertinent history) GI: No pertinent hx Heme/Onc: No pertinent hx Hepatobiliary: No pertinent hx Psych: No pertinent hx Musculoskeletal: Other (no pertinent history) Rheumatologic: No pertinent hx Infectious disease: No pertinent hx ENT: Allergic Rhinitis Renal/: Chronic renal insuff (CKD3), Other (priapism) Endocrine: No pertinent hx Dermatology: No pertinent hx Past Surgical History Past Surgical History: No pertinent history Family History Family History: High Cholestrol, Hypertension, Kidney Disease Social History No ALCOHOL: occassional Drugs: Marijuana Lives: with Family Current Problem List Problem List Problems Medical Problems: (1) Acute CHF Status: Acute (2) Acute kidney failure Status: Acute Current Medications Current Medications Current Medications Furosemide (Lasix) 40 mg 1X ONCE IVP Last administered on 09/28/20at 18:14; Start 09/28/20 at 17:45; Stop 09/28/20 at 17:46; Status DC Ondansetron HCl (Zofran) 4 mg PRN Q8HRS PRN IV NAUSEA/VOMITING; Start 09/28/20 at 17:45; Stop 09/28/20 at 17:44; Status DC Morphine Sulfate (Morphine Sulfate) 4 mg PRN Q2HR PRN IV PAIN; Start 09/28/20 at 17:45; Stop 09/29/20 at 17:44 Ondansetron HCl (Zofran) 4 mg PRN Q4HRS PRN IV NAUSEA/VOMITING; Start 09/28/20 at 17:45 Hydralazine HCl (Apresoline Inj) 10 mg PRN Q4HRS PRN IVP HTN Last administered on 09/29/20 03:32; Start 09/28/20 at 18:00 Atorvastatin Calcium (Lipitor) 20 mg QHS PO Last administered on 09/28/20 20:59; Start 09/28/20 at 21:00 Heparin Sodium (Porcine) (Heparin Sodium) 5,000 unit Q8HRS SQ Last administered on 09/29/20 06:02; Start 09/28/20 at 22:00 Aspirin (Baldo Aspirin) 325 mg DAILY ONCE PO Last administered on 09/28/20 18:14; Start 09/28/20 at 18:00; Stop 09/28/20 at 18:07; Status DC Furosemide (Lasix) 40 mg BID92 IVP Last administered on 09/29/20 11:33; Start 09/29/20 at 09:00 Zolpidem Tartrate (Ambien) 5 mg PRN QHS PRN PO INSOMNIA Last administered on 09/28/20 20:59; Start 09/28/20 at 20:30 Hydroxyzine HCl (Atarax) 10 mg PRN Q6HRS PRN PO ITCHING Last administered on 09/28/20 20:59; Start 09/28/20 at 20:30 Nicotine (Nicoderm Cq 21mg) 1 patch PRN DAILY PRN TD SMOKING CESSATION; Start 09/28/20 at 20:30 Acetaminophen (Tylenol) 650 mg PRN Q6HRS PRN PO MILD PAIN / TEMP > 100.3'F; Start 09/28/20 at 20:30 Nitroglycerin (Nitro-Bid Oint) 1 inch Q8HRS TP Last administered on 09/28/20 20:59; Start 09/28/20 at 22:00; Stop 09/28/20 at 22:01; Status DC Isosorbide Mononitrate (Imdur) 30 mg DAILY PO Last administered on 09/29/20 08:19; Start 09/29/20 at 09:00 Hydralazine HCl (Apresoline) 50 mg TID PO Last administered on 09/29/20 08:19; Start 09/28/20 at 21:00 Amlodipine Besylate (Norvasc) 10 mg DAILY PO Last administered on 09/29/20at 11:33; Start 09/29/20 at 11:00 Carvedilol (Coreg) 6.25 mg BIDWMEALS PO Last administered on 09/29/20at 11:33; Start 09/29/20 at 11:30 Perflutren Protein Type A Microsphe (Optison) 0.66 mg STK-MED ONCE IV ; Start 09/29/20 at 12:24; Stop 09/29/20 at 12:25; Status DC Active Scripts Active Reported Lisinopril 10 Mg Tablet Unknown Dose PO DAILY Allergies Allergies: Coded Allergies: No Known Drug Allergies (Unverified , 12/02/14) ROS General: YES: Fatigue, Malaise PSYCHOLOGICAL ROS: YES: Depression Eyes: Yes Decreased vision HEENT: YES: [place]onte ALLERGY AND IMMUNOLOGY: YES: Seasonal Allergies Respiratory: YES: Cough, Orthopnea, Shortness of breath Cardiovascular: yes Orthopnea, yes Edema Gastrointestinal: Yes Constipation Genitourinary: YES Other (NOCTURIA) Musculoskeletal: Yes Muscular Weakness Neurological: Yes Weakness Skin: Yes Dry Skin Physical Exam General: Alert, Oriented X3, Cooperative, No acute distress HEENT: Atraumatic Lungs: Other (DECREASED AT BASES) Heart: Regular rate, Other (+ S4) Abdomen: Normal bowel sounds Extremities: No cyanosis Neuro: Normal speech, Cranial nerves 3-12 NL Psych/Mental Status: Mental status NL, Mood NL MUSCULOSKELETAL: Other (2+ EDEMA) Vitals VITALS Vital Signs Date Time Temp Pulse Resp B/P (MAP) Pulse Ox O2 Delivery O2 Flow Rate FiO2 09/29/20 11:33 115 162/113 09/29/20 07:00 99.5 22 98 Room Air 99.5 Labs Labs Laboratory Tests Test 09/28/20 16:06 09/28/20 18:43 09/29/20 03:40 09/29/20 10:10 White Blood Count 7.8 x10^3/uL (4.0-11.0) Red Blood Count 4.66 x10^6/uL (4.30-5.70) Hemoglobin 14.4 g/dL (13.0-17.5) Hematocrit 43.8 % (39.0-53.0) Mean Corpuscular Volume 94 fL (79-100) Mean Corpuscular Hemoglobin 31 pg (25-35) Mean Corpuscular Hemoglobin Concent 33 g/dL (31-37) Red Cell Distribution Width 15.1 % (11.5-14.5) Platelet Count 171 x10^3/uL (140-400) Neutrophils (%) (Auto) 84 % (31-73) Lymphocytes (%) (Auto) 9 % (24-48) Monocytes (%) (Auto) 6 % (0-9) Eosinophils (%) (Auto) 0 % (0-3) Basophils (%) (Auto) 1 % (0-3) Neutrophils # (Auto) 6.6 x10^3/uL (1.8-7.7) Lymphocytes # (Auto) 0.7 x10^3/uL (1.0-4.8) Monocytes # (Auto) 0.5 x10^3/uL (0.0-1.1) Eosinophils # (Auto) 0.0 x10^3/uL (0.0-0.7) Basophils # (Auto) 0.1 x10^3/uL (0.0-0.2) Sodium Level 147 mmol/L (136-145) 147 mmol/L (136-145) Potassium Level 4.2 mmol/L (3.5-5.1) 4.0 mmol/L (3.5-5.1) Chloride Level 109 mmol/L (98-107) 108 mmol/L (98-107) Carbon Dioxide Level 23 mmol/L (21-32) 22 mmol/L (21-32) Anion Gap 15 (6-14) 17 (6-14) Blood Urea Nitrogen 43 mg/dL (8-26) 41 mg/dL (8-26) Creatinine 6.9 mg/dL (0.7-1.3) 6.6 mg/dL (0.7-1.3) Estimated GFR (Cockcroft-Gault) 10.4 11.0 BUN/Creatinine Ratio 6 (6-20) Glucose Level 135 mg/dL (70-99) 105 mg/dL (70-99) Calcium Level 8.9 mg/dL (8.5-10.1) 9.0 mg/dL (8.5-10.1) Phosphorus Level 3.5 mg/dL (2.6-4.7) Magnesium Level 2.5 mg/dL (1.8-2.4) Total Bilirubin 0.9 mg/dL (0.2-1.0) Aspartate Amino Transf (AST/SGOT) 17 U/L (15-37) Alanine Aminotransferase (ALT/SGPT) 34 U/L (16-63) Alkaline Phosphatase 120 U/L (46-116) Troponin I Quantitative 0.037 ng/mL (0.000-0.055) 0.032 ng/mL (0.000-0.055) 0.036 ng/mL (0.000-0.055) MQ-Wga-N-Type Natriuretic Peptide 36050 pg/mL (0-124) Total Protein 7.1 g/dL (6.4-8.2) Albumin 3.5 g/dL (3.4-5.0) Albumin/Globulin Ratio 1.0 (1.0-1.7) Lipase 193 U/L (73-393) Triglycerides Level 74 mg/dL (0-150) Cholesterol Level 153 mg/dL (0-200) LDL Cholesterol, Calculated 84 mg/dL (0-100) VLDL Cholesterol, Calculated 15 mg/dL (0-40) Non-HDL Cholesterol Calculated 99 mg/dL (0-129) HDL Cholesterol 54 mg/dL (40-60) Cholesterol/HDL Ratio 2.8 Thyroid Stimulating Hormone (TSH) 2.173 uIU/mL (0.358-3.74) Urine Collection Type Unknown Urine Color Yellow Urine Clarity Clear Urine pH 7.0 (<5.0-8.0) Urine Specific Kaleva <=1.005 (1.000-1.030) Urine Protein >=300 mg/dL (NEG-TRACE) Urine Glucose (UA) Negative mg/dL (NEG) Urine Ketones (Stick) Negative mg/dL (NEG) Urine Blood Trace (NEG) Urine Nitrite Negative (NEG) Urine Bilirubin Negative (NEG) Urine Urobilinogen Dipstick 0.2 mg/dL (0.2 mg/dL) Urine Leukocyte Esterase Negative (NEG) Urine RBC 0 /HPF (0-2) Urine WBC 0 /HPF (0-4) Urine Bacteria 0 /HPF (0-FEW) Urine Opiates Screen Neg (NEG) Urine Methadone Screen Neg (NEG) Urine Barbiturates Neg (NEG) Urine Phencyclidine Screen Neg (NEG) Urine Amphetamine/Methamphetamine Neg (NEG) Urine Benzodiazepines Screen Neg (NEG) Urine Cocaine Screen Neg (NEG) Urine Cannabinoids Screen Pos (NEG) Urine Ethyl Alcohol Neg (NEG) Laboratory Tests Test 09/28/20 16:06 09/28/20 18:43 09/29/20 03:40 09/29/20 10:10 White Blood Count 7.8 x10^3/uL (4.0-11.0) Red Blood Count 4.66 x10^6/uL (4.30-5.70) Hemoglobin 14.4 g/dL (13.0-17.5) Hematocrit 43.8 % (39.0-53.0) Mean Corpuscular Volume 94 fL (79-100) Mean Corpuscular Hemoglobin 31 pg (25-35) Mean Corpuscular Hemoglobin Concent 33 g/dL (31-37) Red Cell Distribution Width 15.1 % (11.5-14.5) Platelet Count 171 x10^3/uL (140-400) Neutrophils (%) (Auto) 84 % (31-73) Lymphocytes (%) (Auto) 9 % (24-48) Monocytes (%) (Auto) 6 % (0-9) Eosinophils (%) (Auto) 0 % (0-3) Basophils (%) (Auto) 1 % (0-3) Neutrophils # (Auto) 6.6 x10^3/uL (1.8-7.7) Lymphocytes # (Auto) 0.7 x10^3/uL (1.0-4.8) Monocytes # (Auto) 0.5 x10^3/uL (0.0-1.1) Eosinophils # (Auto) 0.0 x10^3/uL (0.0-0.7) Basophils # (Auto) 0.1 x10^3/uL (0.0-0.2) Sodium Level 147 mmol/L (136-145) 147 mmol/L (136-145) Potassium Level 4.2 mmol/L (3.5-5.1) 4.0 mmol/L (3.5-5.1) Chloride Level 109 mmol/L (98-107) 108 mmol/L (98-107) Carbon Dioxide Level 23 mmol/L (21-32) 22 mmol/L (21-32) Anion Gap 15 (6-14) 17 (6-14) Blood Urea Nitrogen 43 mg/dL (8-26) 41 mg/dL (8-26) Creatinine 6.9 mg/dL (0.7-1.3) 6.6 mg/dL (0.7-1.3) Estimated GFR (Cockcroft-Gault) 10.4 11.0 BUN/Creatinine Ratio 6 (6-20) Glucose Level 135 mg/dL (70-99) 105 mg/dL (70-99) Calcium Level 8.9 mg/dL (8.5-10.1) 9.0 mg/dL (8.5-10.1) Phosphorus Level 3.5 mg/dL (2.6-4.7) Magnesium Level 2.5 mg/dL (1.8-2.4) Total Bilirubin 0.9 mg/dL (0.2-1.0) Aspartate Amino Transf (AST/SGOT) 17 U/L (15-37) Alanine Aminotransferase (ALT/SGPT) 34 U/L (16-63) Alkaline Phosphatase 120 U/L (46-116) Troponin I Quantitative 0.037 ng/mL (0.000-0.055) 0.032 ng/mL (0.000-0.055) 0.036 ng/mL (0.000-0.055) SA-Emz-X-Type Natriuretic Peptide 91403 pg/mL (0-124) Total Protein 7.1 g/dL (6.4-8.2) Albumin 3.5 g/dL (3.4-5.0) Albumin/Globulin Ratio 1.0 (1.0-1.7) Lipase 193 U/L (73-393) Triglycerides Level 74 mg/dL (0-150) Cholesterol Level 153 mg/dL (0-200) LDL Cholesterol, Calculated 84 mg/dL (0-100) VLDL Cholesterol, Calculated 15 mg/dL (0-40) Non-HDL Cholesterol Calculated 99 mg/dL (0-129) HDL Cholesterol 54 mg/dL (40-60) Cholesterol/HDL Ratio 2.8 Thyroid Stimulating Hormone (TSH) 2.173 uIU/mL (0.358-3.74) Urine Collection Type Unknown Urine Color Yellow Urine Clarity Clear Urine pH 7.0 (<5.0-8.0) Urine Specific [place] <=1.005 (1.000-1.030) Urine Protein >=300 mg/dL (NEG-TRACE) Urine Glucose (UA) Negative mg/dL (NEG) Urine Ketones (Stick) Negative mg/dL (NEG) Urine Blood Trace (NEG) Urine Nitrite Negative (NEG) Urine Bilirubin Negative (NEG) Urine Urobilinogen Dipstick 0.2 mg/dL (0.2 mg/dL) Urine Leukocyte Esterase Negative (NEG) Urine RBC 0 /HPF (0-2) Urine WBC 0 /HPF (0-4) Urine Bacteria 0 /HPF (0-FEW) Urine Opiates Screen Neg (NEG) Urine Methadone Screen Neg (NEG) Urine Barbiturates Neg (NEG) Urine Phencyclidine Screen Neg (NEG) Urine Amphetamine/Methamphetamine Neg (NEG) Urine Benzodiazepines Screen Neg (NEG) Urine Cocaine Screen Neg (NEG) Urine Cannabinoids Screen Pos (NEG) Urine Ethyl Alcohol Neg (NEG) Assessment/Plan Assessment/Plan 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
[2020-09-29] MEDS ORDERED: LIDOCAINE 2%/EPI 1:100,000 20 ML VIAL. ONE (12:51)
[2020-09-29] MEDS ORDERED: fentaNYL PF VIAL 100 MCG/2 ML VIAL ONE (13:14)
[2020-09-29] MEDS ORDERED: MIDAZOLAM HCL/PF 2 MG/2 ML VIAL. ONE (13:14)
--- NOTE | 2020-09-29 13:43 | NUR ---
SS following for discharge planning. SS reviewed pt chart and discussed with pt RN. Pt is from home and is currently on room air. Self pay. Nephrology consulted. Pt on IV Lasix. Per Dr. Alonso, pt will need outpatient dialysis set up at [facility]. Serology labs ordered. Pt getting dialysis cath placed today. SS will continue to follow for discharge planning.
[2020-09-29] MEDS ORDERED: MIDAZOLAM HCL/PF 2 MG/2 ML VIAL. IV ONE (13:45)
[2020-09-29] MEDS ORDERED: fentaNYL PF VIAL 100 MCG/2 ML VIAL IV ONE (13:45)
[2020-09-29] MEDS ORDERED: LIDOCAINE 1%/EPI 1:100,000 20 ML VIAL. INJ ONE (13:45)
--- NOTE | 2020-09-29 16:06 | CARD ---
MR#: [id number] Date of Study: 09/29/2020 Ordering Physician: YAZAN BALLARD, Referring Physician: YAZAN BALLARD Tech: Adelita Liu VERO APPROVED REPORT EXAM: Two-dimensional and M-mode echocardiogram with Doppler and color Doppler. Other Information Quality : Good INDICATION Congestive Heart Failure Echo Enhancing Agent Agent/Amount Used: Optison 2mL 2D DIMENSIONS RVDd3.1 (2.9-3.5cm)Left Atrium(2D)4.2 (1.6-4.0cm) IVSd1.4 (0.7-1.1cm)Aortic Root(2D)3.4 (2.0-3.7cm) LVDd5.5 (3.9-5.9cm)LVOT Diameter2.5 (1.8-2.4cm) PWd1.3 (0.7-1.1cm)LVDs4.7 (2.5-4.0cm) FS (%) 14.4 %SV44.3 ml LVEF(%)30.4 (>50%) Aortic Valve AoV Peak William.105.8cm/sAoV VTI12.2cm AO Peak GR.4.5mmHgLVOT Peak William.96.4cm/s AO Mean GR.3mmHgAVA (VMAX)4.30cm2 ASHER (VTI)4.50cm2 Mitral Valve MV E Mzrmowcp337.1cm/sMV DECEL VQTF086aw MV A Yqfhwbmo23.1cm/sE/A Ratio2.4 Tricuspid Valve TR P. Olyuzttx028vn/sRAP [id number] TR Peak Gr.78seKqWVJB68gjZd Pulmonary Vein S1 Prafpyxs44.9cm/sD2 Jwhodjib58.7cm/s LEFT VENTRICLE The left ventricle is normal size. There is mild to moderate concentric left ventricular hypertrophy. The left ventricular systolic function is moderate to severely diminished. The Ejection Fraction is 25-30%. There is severe global hypokinesis of the left ventricle. Transmitral Doppler flow pattern is Grade III-reversible restrictive diastolic dysfunction. RIGHT VENTRICLE The right ventricle is normal size. Systolic function is mildly reduced. ATRIA The left atrium is mildly dilated. The right atrium is mildly dilated. The interatrial septum is inta ct with no evidence for an atrial septal defect or patent foramen ovale as noted on 2-D or Doppler im aging. AORTIC VALVE The aortic valve is moderately thickened but opens well. Doppler and Color Flow revealed trace aortic regurgitation. There is no significant aortic valvular stenosis. MITRAL VALVE The mitral valve is normal in structure and function. There is no evidence of mitral valve prolapse. There is no mitral valve stenosis. Doppler and Color-flow revealed mild mitral regurgitation. TRICUSPID VALVE The tricuspid valve is normal in structure and function. Doppler and Color Flow revealed mild tricusp id regurgitation. There is moderate pulmonary hypertension. The PA pressure was estimated at 45 mmHg. There is no tricuspid valve stenosis. PULMONIC VALVE The pulmonary valve is normal in structure and function. Doppler and Color Flow revealed mild pulmoni c valvular regurgitation. There is no pulmonic valvular stenosis. GREAT VESSELS The aortic root is normal in size. The ascending aorta is mildly dilated at 3.6 cm. The IVC is dilate d and collapses <50% with inspiration. PERICARDIAL EFFUSION There is no evidence of significant pericardial effusion. Critical Notification Critical Value: No <Conclusion> The left ventricular systolic function is moderate to severely diminished. The Ejection Fraction is 25-30%. Transmitral Doppler flow pattern is Grade III-reversible restrictive diastolic dysfunction. Mild mitral regurgitation. Mild tricuspid regurgitation. The PA pressure was estimated at 45 mmHg. There is no evidence of significant pericardial effusion. Signed by : Elian Zavala, Electronically Approved : 09/29/2020 16:06:40
--- NOTE | 2020-09-29 16:37 | PDOC ---
[employer] PROGRESS NOTE Date of Service DOS: DATE: 09/29/20 TIME: 16:35 Chief Complaint Chief Complaint Hypertensive emergency - with acute CHF and renal failure poor renal function at baseline, could be ESRD Acute diastolic CHF - . Imdur/hydralazine, ASA, statin, BB LUCILLE - w. vasomotor nephropathy on prior CKD with htn could be ESRD Elevated troponin - demand ischemia Abnormal CXR - CHF Hyperglycemia - will check A1c, TSH tobacco use disorder, htn, prior poor compliance Anxiety - improved Dispo -inpatient History of Present Illness History of Present Illness HD cath placed today, need HD, eval in AM, renal following, pt feels improved, no new complaints Vitals/I&O Vitals/I&O: Vital Signs Date Time Temp Pulse Resp B/P (MAP) Pulse Ox O2 Delivery O2 Flow Rate FiO2 09/29/20 15:24 98 160/98 09/29/20 15:00 99.5 24 97 Room Air 99.5 I & O 09/28/20 09/28/20 09/29/20 15:00 23:00 07:00 Intake Total 760 ml Output Total 3100 ml Balance -2340 ml Physical Exam General: Alert, Oriented X3, Cooperative, No acute distress Heart: Regular rate, Other (+ S4) Abdomen: Normal bowel sounds Extremities: No cyanosis Skin: No breakdown, No significant lesion Labs Labs: Laboratory Tests Test 09/28/20 18:43 09/29/20 03:40 09/29/20 10:10 09/29/20 11:55 Troponin I Quantitative 0.032 ng/mL (0.000-0.055) 0.036 ng/mL (0.000-0.055) Prothrombin Time 14.7 SEC (11.7-14.0) Prothromb Time International Ratio 1.2 (0.8-1.1) Sodium Level 147 mmol/L (136-145) Potassium Level 4.0 mmol/L (3.5-5.1) Chloride Level 108 mmol/L (98-107) Carbon Dioxide Level 22 mmol/L (21-32) Anion Gap 17 (6-14) Blood Urea Nitrogen 41 mg/dL (8-26) Creatinine 6.6 mg/dL (0.7-1.3) Estimated GFR (Cockcroft-Gault) 11.0 Glucose Level 105 mg/dL (70-99) Calcium Level 9.0 mg/dL (8.5-10.1) Triglycerides Level 74 mg/dL (0-150) Cholesterol Level 153 mg/dL (0-200) LDL Cholesterol, Calculated 84 mg/dL (0-100) VLDL Cholesterol, Calculated 15 mg/dL (0-40) Non-HDL Cholesterol Calculated 99 mg/dL (0-129) HDL Cholesterol 54 mg/dL (40-60) Cholesterol/HDL Ratio 2.8 Thyroid Stimulating Hormone (TSH) 2.173 uIU/mL (0.358-3.74) Urine Collection Type Unknown Urine Color Yellow Urine Clarity Clear Urine pH 7.0 (<5.0-8.0) Urine Specific [place] <=1.005 (1.000-1.030) Urine Protein >=300 mg/dL (NEG-TRACE) Urine Glucose (UA) Negative mg/dL (NEG) Urine Ketones (Stick) Negative mg/dL (NEG) Urine Blood Trace (NEG) Urine Nitrite Negative (NEG) Urine Bilirubin Negative (NEG) Urine Urobilinogen Dipstick 0.2 mg/dL (0.2 mg/dL) Urine Leukocyte Esterase Negative (NEG) Urine RBC 0 /HPF (0-2) Urine WBC 0 /HPF (0-4) Urine Bacteria 0 /HPF (0-FEW) Urine Opiates Screen Neg (NEG) Urine Methadone Screen Neg (NEG) Urine Barbiturates Neg (NEG) Urine Phencyclidine Screen Neg (NEG) Urine Amphetamine/Methamphetamine Neg (NEG) Urine Benzodiazepines Screen Neg (NEG) Urine Cocaine Screen Neg (NEG) Urine Cannabinoids Screen Pos (NEG) Urine Ethyl Alcohol Neg (NEG) SARS-CoV-2 Antigen (Rapid) Negative (NEGATIVE) Review of Systems Review of Systems: no n.vd Assessment and Plan Assessmemt and Plan Problems Medical Problems: (1) Acute CHF Status: Acute (2) Acute kidney failure Status: Acute Comment Review of Relevant I have reviewed the following items karen (where applicable) has been applied. Medications: Current Medications Medications (Trade) Dose Ordered Sig/Lisandro Route PRN Reason Start Time Stop Time Status Last Admin Dose Admin Furosemide (Lasix) 40 mg 1X ONCE IVP 09/28/20 17:45 09/28/20 17:46 DC 09/28/20 18:14 Hydralazine HCl (Apresoline Inj) 10 mg PRN Q4HRS PRN IVP HTN 09/28/20 18:00 09/29/20 03:32 Atorvastatin Calcium (Lipitor) 20 mg QHS PO 09/28/20 21:00 09/28/20 20:59 Heparin Sodium (Porcine) (Heparin Sodium) 5,000 unit Q8HRS SQ 09/28/20 22:00 09/29/20 06:02 Aspirin (Baldo Aspirin) 325 mg DAILY ONCE PO 09/28/20 18:00 09/28/20 18:07 DC 09/28/20 18:14 Furosemide (Lasix) 40 mg [id number] IVP 09/29/20 09:00 09/29/20 15:23 Zolpidem Tartrate (Ambien) 5 mg PRN QHS PRN PO INSOMNIA 09/28/20 20:30 09/28/20 20:59 Hydroxyzine HCl (Atarax) 10 mg PRN Q6HRS PRN PO ITCHING 09/28/20 20:30 09/28/20 20:59 Nitroglycerin (Nitro-Bid Oint) 1 inch Q8HRS TP 09/28/20 22:00 09/28/20 22:01 DC 09/28/20 20:59 Isosorbide Mononitrate (Imdur) 30 mg DAILY PO 09/29/20 09:00 09/29/20 08:19 Hydralazine HCl (Apresoline) 50 mg TID PO 09/28/20 21:00 09/29/20 15:24 Amlodipine Besylate (Norvasc) 10 mg DAILY PO 09/29/20 11:00 09/29/20 11:33 Carvedilol (Coreg) 6.25 mg BIDWMEALS PO 09/29/20 11:30 09/29/20 11:33 Perflutren Protein Type A Microsphe (Optison) 0.66 mg 1X ONCE IV 09/29/20 12:45 09/29/20 12:46 DC 09/29/20 12:37 Midazolam HCl (Versed) 1 mg 1X ONCE IV 09/29/20 13:45 09/29/20 13:46 DC 09/29/20 13:45 Fentanyl Citrate (Fentanyl 2ml Vial) 75 mcg 1X ONCE IV 09/29/20 13:45 09/29/20 13:46 DC 09/29/20 13:45 Lidocaine/ Epinephrine (LIDOCAINE 1%-EPI 1:100,000 Multi-Dose) 15 ml 1X ONCE INJ 09/29/20 13:45 09/29/20 13:46 DC 09/29/20 13:45 Cefazolin Sodium/ Dextrose 50 ml @ 100 mls/hr 1X ONCE IV 09/29/20 13:45 09/29/20 14:14 DC 09/29/20 13:45 Justifications for Admission Other Justification BRITTANY CHACKO MD Sep 29, 2020 16:37
[2020-09-29] MEDS: ZOLPIDEM 5 MG TABLET. PO PRN (20:48)
[2020-09-29] MEDS: ATORVASTATIN CALCIUM 20 MG TABLET PO SCH (20:48)
[2020-09-30 03:29] VITALS: BP 149/92
[2020-09-30] MEDS: HEPARIN for SUB-Q USE 5,000 UNIT/ML VIAL. SQ SCH ×3 (05:50→21:18)
[2020-09-30 07:00] VITALS: BP 151/104
[2020-09-30] MEDS: CARVEDILOL 6.25 MG TABLET. PO SCH ×2 (08:00→17:23)
[2020-09-30] MEDS: FUROSEMIDE 40 MG/4 ML VIAL. IVP SCH ×2 (09:00→15:02)
[2020-09-30 10:27] LABS: CALCIUM 8.1 mg/dL (8.5-10.1); GFR 10.3; POTASSIUM 4.6 mmol/L (3.5-5.1)
--- NOTE | 2020-09-30 11:47 | PDOC ---
YAZAN BALLARD ASPHALT PATCHER 09/30/20 1147: CARDIO Progress Notes Date and Time Date of Service 09/30/2020 Time of Evaluation 1130 Subjective Subjective: No Chest Pain, No shortness of breath, No Palpitations Vitals Vitals Vital Signs Date Time Temp Pulse Resp B/P (MAP) Pulse Ox O2 Delivery O2 Flow Rate FiO2 09/30/20 07:23 Room Air 09/30/20 07:00 98.7 101 20 151/104 (120) 96 98.7 Weight Weight [ ] Input and Output Intake and Output Intake and Output 09/30/20 07:00 Intake Total 1980 ml Output Total 5025 ml Balance -3045 ml Intake Oral 1980 ml Output Urine Total 5025 ml # Voids 1 Laboratory Labs Laboratory Tests Test 09/29/20 11:55 09/30/20 04:05 SARS-CoV-2 Antigen (Rapid) Negative (NEGATIVE) Sodium Level 143 mmol/L (136-145) Potassium Level 4.6 mmol/L (3.5-5.1) Chloride Level 108 mmol/L (98-107) Carbon Dioxide Level 24 mmol/L (21-32) Anion Gap 11 (6-14) Blood Urea Nitrogen 42 mg/dL (8-26) Creatinine 7.0 mg/dL (0.7-1.3) Estimated GFR (Cockcroft-Gault) 10.3 Glucose Level 96 mg/dL (70-99) Calcium Level 8.1 mg/dL (8.5-10.1) Phosphorus Level 3.3 mg/dL (2.6-4.7) Physical Exam HEENT: Neck Supple W Full Motion Chest: Symmetric LUNGS: Other (diminished bases) Heart: S1S2, RRR (SR) Abdomen: Soft N/T Extremities: No Calf Tenderness, Other (2+ bilateral LE pitting edema) Neurology: alert, oriented, follow commands Assessment Assessment 1. 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 BP better 2. 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 Acute on chronic CHF with likely combined systolic/diastolic CHF: compensated 4. HLP 5. Tobaccoism : heavy smoker and quit a month ago 6. Marijuana use 7. Noncompliance: last routine BP meds over a yr ago at least 8. Cardiomyopathy: EF 25-30% likely due to uncontrolled HTN. 9. Low grade fever: per PCP Recommendations 1. Continue lasix therapy. Fluid off loading per HD 2. Secondary prevention measures. Continue norvasc, coreg, hydralazine/imdur 3. Smoking and marijuana cessation. diet modification 4. Will arrange for ischemic workup as an outpt 5. ASA 6. Follow up on 11/25 at 2PM Justicifation of Admission Dx: Justifications for Admission: Justification of Admission Dx: Yes KANIKA SANTOS MD 09/30/202058: CARDIO Progress Notes Assessment Assessment Patient seen and examined. Agree with SKID WORKER's assessment and plan. Acute on chronic combined systolic and diastolic heart failure better compensated. 2D echo showed LVEF 25 to 30%. Nephrology following for acute on chronic renal insufficiency. Plan ischemic evaluation outpatient. YAZAN BALLARD APRN Sep 30, 2020 11:47 KANIKA SANTOS MD Sep 30, 2020 20:59
--- NOTE | 2020-09-30 12:03 | NUR ---
SS following up with discharge planning. SS reviewed pt chart and discussed with pt RN. Pt is currently on room air. COVID19 negative. Self pay. Pt new ESRD and in need of dialysis. Med Assist working with pt to complete Medicaid application. Pt having first dialysis this morning. SS currently awaiting Serology labs, IR report for tunneled cath placement, and first flow sheet. SS will phone and fax referral for dialysis chair time once received. Dr. Alonso requesting placement at [facility], ; fax [phone]. SS will continue to follow for discharge planning.
--- NOTE | 2020-09-30 12:08 | PDOC ---
Renal-Progress Notes Subjective Notes Notes NO NEW COMPLAINTS History of Present Illness Hx of present illness STABLE, STILL SOME SOB Vitals Vitals Vital Signs Date Time Temp Pulse Resp B/P (MAP) Pulse Ox O2 Delivery O2 Flow Rate FiO2 09/30/20 07:23 Room Air 09/30/20 07:00 98.7 101 20 151/104 (120) 96 98.7 Weight Weight [ ] I.O. Intake and Output Intake and Output 09/30/20 07:00 Intake Total 1980 ml Output Total 5025 ml Balance -3045 ml Intake Oral 1980 ml Output Urine Total 5025 ml # Voids 1 Labs Labs Laboratory Tests Test 09/30/20 04:05 Sodium Level 143 mmol/L (136-145) Potassium Level 4.6 mmol/L (3.5-5.1) Chloride Level 108 mmol/L (98-107) Carbon Dioxide Level 24 mmol/L (21-32) Anion Gap 11 (6-14) Blood Urea Nitrogen 42 mg/dL (8-26) Creatinine 7.0 mg/dL (0.7-1.3) Estimated GFR (Cockcroft-Gault) 10.3 Glucose Level 96 mg/dL (70-99) Calcium Level 8.1 mg/dL (8.5-10.1) Phosphorus Level 3.3 mg/dL (2.6-4.7) Review of Systems Constitutional: yes: alert, oriented Ears/Nose/Throat: Yes: no symptom reported Eyes: Yes: no symptom reported Pulmonary: Yes dyspnea Cardiovascular: Yes edema Gastrointestional: Yes: no symptom reported Genitourinary: Yes: no symptom reported Musculoskeletal: Yes: no symptom reported Endocrine: Yes: no symptom reported Physical Exam General Appearance: no apparent distress Skin: warm Respiratory: decreased breath sounds Heart: S1S2 Abdomen: soft Genitourinary: bladder flat Extremities: pulses present, edema Neurology: alert, oriented Musculoskeletal: Other (no pertinent history) Assessment Assessment IMP NEW ESRD-SUSPECT HTN RELATED MALIGNANT HTN ACUTE ON CHRONIC CHF NON COMPLIANCE PLAN CONT LASIX START JOSE GUADALUPE-I HD TODAY UF 3.0 LITERS UF TOLERATED HAVE ASKED SW TO SET UP OP HD CARDIOLOGY EVL AND TX WILL FOLLOW GUANAKITO MUÑOZ MD Sep 30, 2020 12:08
--- NOTE | 2020-09-30 13:03 | PDOC ---
[employer] PROGRESS NOTE Date of Service DOS: DATE: 09/30/20 TIME: 12:56 Chief Complaint Chief Complaint Hypertensive emergency - with acute CHF and renal failure poor renal function at baseline, could be ESRD Acute diastolic CHF - . Imdur/hydralazine, ASA, statin, BB LUCILLE - w. vasomotor nephropathy on prior CKD with htn could be ESRD Elevated troponin - demand ischemia Abnormal CXR - CHF Hyperglycemia - will check A1c, TSH tobacco use disorder, htn, prior poor compliance Anxiety - improved Dispo -inpatient History of Present Illness History of Present Illness start hemodialysis today looks good, no event will need chair for f/u for HD time Vitals/I&O Vitals/I&O: Vital Signs Date Time Temp Pulse Resp B/P (MAP) Pulse Ox O2 Delivery O2 Flow Rate FiO2 09/30/20 07:23 Room Air 09/30/20 07:00 98.7 101 20 151/104 (120) 96 98.7 I & O 09/29/20 09/29/20 09/30/20 15:00 23:00 07:00 Intake Total 850 ml 480 ml 650 ml Output Total 1000 ml 2700 ml 1325 ml Balance -150 ml -2220 ml -675 ml Physical Exam General: Alert, Oriented X3, Cooperative, No acute distress Heart: Regular rate, Other (+ S4) Abdomen: Normal bowel sounds Extremities: No cyanosis Skin: No breakdown, No significant lesion Labs Labs: Laboratory Tests Test 09/30/20 04:05 Sodium Level 143 mmol/L (136-145) Potassium Level 4.6 mmol/L (3.5-5.1) Chloride Level 108 mmol/L (98-107) Carbon Dioxide Level 24 mmol/L (21-32) Anion Gap 11 (6-14) Blood Urea Nitrogen 42 mg/dL (8-26) Creatinine 7.0 mg/dL (0.7-1.3) Estimated GFR (Cockcroft-Gault) 10.3 Glucose Level 96 mg/dL (70-99) Calcium Level 8.1 mg/dL (8.5-10.1) Phosphorus Level 3.3 mg/dL (2.6-4.7) Assessment and Plan Assessmemt and Plan Problems Medical Problems: (1) Acute CHF Status: Acute (2) Acute kidney failure Status: Acute Comment Review of Relevant I have reviewed the following items karen (where applicable) has been applied. Medications: Current Medications Medications (Trade) Dose Ordered Sig/Lisandro Route PRN Reason Start Time Stop Time Status Last Admin Dose Admin Midazolam HCl (Versed) 1 mg 1X ONCE IV 09/29/20 13:45 09/29/20 13:46 DC 09/29/20 13:45 Fentanyl Citrate (Fentanyl 2ml Vial) 75 mcg 1X ONCE IV 09/29/20 13:45 09/29/20 13:46 DC 09/29/20 13:45 Lidocaine/ Epinephrine (LIDOCAINE 1%-EPI 1:100,000 Multi-Dose) 15 ml 1X ONCE INJ 09/29/20 13:45 09/29/20 13:46 DC 09/29/20 13:45 Cefazolin Sodium/ Dextrose 50 ml @ 100 mls/hr 1X ONCE IV 09/29/20 13:45 09/29/20 14:14 DC 09/29/20 13:45 Justifications for Admission Other Justification BRITTANY CHACKO MD Sep 30, 2020 12:57
[2020-09-30 15:00] VITALS: BP 156/109
[2020-09-30] MEDS: LISINOPRIL 10 MG TABLET PO SCH (15:03)
[2020-09-30] MEDS: amLODIPine BESYLATE 10 MG TABLET PO SCH (15:03)
[2020-09-30] MEDS: ASPIRIN ENTERIC COATED 81 MG TABLET.DR. PO SCH (15:03)
[2020-09-30] MEDS: ISOSORBIDE MONONITRATE ER 30 MG TAB.ER.24H PO SCH (15:04)
[2020-09-30 18:48] VITALS: BP 116/71
--- NOTE | 2020-09-30 19:25 | NUR ---
PT IN BED ASSESSMENT COMPLETED VSS POC EXPLAINED PT DENIED PAIN WILL RESUME CARE AND CONTINUE TO MONITOR PT.
[2020-09-30] MEDS: ATORVASTATIN CALCIUM 20 MG TABLET PO SCH (21:13)
[2020-09-30 23:00] VITALS: BP 105/73
[2020-09-30] MEDS: ZOLPIDEM 5 MG TABLET. PO PRN (23:33)
--- NOTE | 2020-10-01 02:36 | NUR ---
Assumed care from PETTY Cornejo. Patient is sleeping. In NAD.
[2020-10-01 03:09] VITALS: BP 124/79
[2020-10-01] MEDS: HEPARIN for SUB-Q USE 5,000 UNIT/ML VIAL. SQ SCH ×3 (06:01→21:26)
[2020-10-01 07:00] VITALS: BP 132/89
[2020-10-01 07:44] LABS: HEMATOCRIT 38.3 % (39.0-53.0); HEMOGLOBIN 12.4 g/dL (13.0-17.5); RED BLOOD COUNT 4.07 x10^6/uL (4.30-5.70); RED CELL DISTRIBUTION WIDTH 15.2 % (11.5-14.5); WHITE BLOOD COUNT 12.7 x10^3/uL (4.0-11.0)
[2020-10-01 07:47] LABS: CREATININE 5.9 mg/dL (0.7-1.3); GFR 12.5
[2020-10-01] MEDS ORDERED: DIALYSIS PATIENT. MC PRN (08:30)
[2020-10-01] MEDS ORDERED: IV NORMAL SALINE 1000ML BAG 1,000 ML IV PRN ×2 (08:30)
--- NOTE | 2020-10-01 10:10 | NUR ---
SS following up with discharge planning. SS reviewed pt chart and discussed with pt RN. Pt is currently on room air. COVID19 negative. Pt needing outpatient dialysis set up at [facility], ; fax [phone], for new ESRD. Referral was phoned and faxed to [facility], ; fax [phone]. [facility] contacted SS and reported that they were sending over financial information form to be completed. [employer] reported that Medicaid application would be completed and submitted today. SS will continue to follow for discharge planning.
--- NOTE | 2020-10-01 10:39 | PDOC ---
Renal-Progress Notes Subjective Notes Notes NO NEW COMPLAINTS History of Present Illness Hx of present illness STABLE Vitals Vitals Vital Signs Date Time Temp Pulse Resp B/P (MAP) Pulse Ox O2 Delivery O2 Flow Rate FiO2 10/01/20 07:00 99.0 98 18 132/89 (103) 94 Room Air 99.0 Weight Weight [ ] I.O. Intake and Output Intake and Output 10/01/20 07:00 Intake Total 750 ml Output Total 2515 ml Balance -1765 ml Intake Oral 750 ml Output Urine Total 2515 ml Labs Labs Laboratory Tests Test 10/01/20 06:45 White Blood Count 12.7 x10^3/uL (4.0-11.0) Red Blood Count 4.07 x10^6/uL (4.30-5.70) Hemoglobin 12.4 g/dL (13.0-17.5) Hematocrit 38.3 % (39.0-53.0) Mean Corpuscular Volume 94 fL (79-100) Mean Corpuscular Hemoglobin 31 pg (25-35) Mean Corpuscular Hemoglobin Concent 32 g/dL (31-37) Red Cell Distribution Width 15.2 % (11.5-14.5) Platelet Count 127 x10^3/uL (140-400) Sodium Level 142 mmol/L (136-145) Potassium Level 4.0 mmol/L (3.5-5.1) Chloride Level 106 mmol/L (98-107) Carbon Dioxide Level 27 mmol/L (21-32) Anion Gap 9 (6-14) Blood Urea Nitrogen 31 mg/dL (8-26) Creatinine 5.9 mg/dL (0.7-1.3) Estimated GFR (Cockcroft-Gault) 12.5 Glucose Level 87 mg/dL (70-99) Calcium Level 8.0 mg/dL (8.5-10.1) Phosphorus Level 2.7 mg/dL (2.6-4.7) Review of Systems Constitutional: yes: alert, oriented Ears/Nose/Throat: Yes: no symptom reported Eyes: Yes: no symptom reported Pulmonary: Yes dyspnea Cardiovascular: Yes edema Gastrointestional: Yes: no symptom reported Genitourinary: Yes: no symptom reported Musculoskeletal: Yes: no symptom reported Endocrine: Yes: no symptom reported Physical Exam General Appearance: no apparent distress Skin: warm Respiratory: decreased breath sounds Heart: S1S2 Abdomen: soft Genitourinary: bladder flat Extremities: pulses present, edema Neurology: alert, oriented, follow commands Musculoskeletal: Other (no pertinent history) Assessment Assessment IMP NEW ESRD-SUSPECT HTN RELATED MALIGNANT HTN-IMPROVED ACUTE ON CHRONIC CHF NON COMPLIANCE PLAN CONT LASIX CONT JOSE GUADALUPE-I HD TODAY UF 2.5-3.0 LITERS UF TOLERATED HAVE ASKED SW TO SET UP OP HD CARDIOLOGY EVL AND TX WILL FOLLOW GUANAKITO MUÑOZ MD Oct 01, 2020 10:39
--- NOTE | 2020-10-01 11:36 | NUR ---
SS following up with discharge planning. SS phoned and faxed insurability questionnaire and copy of Medicaid application to [facility], ; fax [phone]. SS will continue to follow for discharge planning.
[2020-10-01] MEDS: FUROSEMIDE 40 MG/4 ML VIAL. IVP SCH ×2 (12:54→14:00)
[2020-10-01] MEDS: ISOSORBIDE MONONITRATE ER 30 MG TAB.ER.24H PO SCH (12:55)
[2020-10-01] MEDS: ASPIRIN ENTERIC COATED 81 MG TABLET.DR. PO SCH (12:55)
[2020-10-01] MEDS: amLODIPine BESYLATE 10 MG TABLET PO SCH (12:55)
[2020-10-01] MEDS: CARVEDILOL 6.25 MG TABLET. PO SCH (12:56)
[2020-10-01] MEDS: LISINOPRIL 10 MG TABLET PO SCH (12:56)
[2020-10-01 12:57] VITALS: BP 154/99
[2020-10-01] MEDS ORDERED: CARV6.2511 PO (13:14)
[2020-10-01] MEDS ORDERED: ISOS30TA68 PO (13:14)
[2020-10-01] MEDS ORDERED: CALC667T4 PO (13:14)
[2020-10-01] MEDS ORDERED: FURO80TA72 PO (13:14)
[2020-10-01] MEDS ORDERED: AMLO-187 PO (13:14)
[2020-10-01] MEDS ORDERED: ATOR20TA58 PO (13:14)
[2020-10-01] MEDS ORDERED: ASPI-886 PO (13:14)
--- NOTE | 2020-10-01 13:16 | PDOC3 ---
Discharge Summary Visit Information Date of Admission: Sep 28, 2020 Date of Discharge: Oct 01, 2020 Final Diagnosis Hypertensive emergency - with acute CHF and renal failure poor renal function at baseline, could be ESRD Acute diastolic CHF - . Imdur/hydralazine, ASA, statin, BB LUCILLE - w. vasomotor nephropathy on prior CKD with htn could be ESRD Elevated troponin - demand ischemia Abnormal CXR - CHF Hyperglycemia - will check A1c, TSH tobacco use disorder, htn, prior poor compliance Anxiety - improved Problems Medical Problems: (1) Acute CHF Status: Acute (2) Acute kidney failure Status: Acute Brief Hospital Course Allergies Allergies Coded Allergies Type Severity Reaction Last Updated Verified No Known Drug Allergies 12/02/14 No Vital Signs Vital Signs Date Time Temp Pulse Resp B/P (MAP) Pulse Ox O2 Delivery O2 Flow Rate FiO2 10/01/20 12:57 98 132/89 10/01/20 12:57 98.5 18 99 Room Air 98.5 Lab Results Laboratory Tests Test 09/30/20 04:05 10/01/20 06:45 Sodium Level 143 mmol/L (136-145) 142 mmol/L (136-145) Potassium Level 4.6 mmol/L (3.5-5.1) 4.0 mmol/L (3.5-5.1) Chloride Level 108 mmol/L (98-107) 106 mmol/L (98-107) Carbon Dioxide Level 24 mmol/L (21-32) 27 mmol/L (21-32) Anion Gap 11 (6-14) 9 (6-14) Blood Urea Nitrogen 42 mg/dL (8-26) 31 mg/dL (8-26) Creatinine 7.0 mg/dL (0.7-1.3) 5.9 mg/dL (0.7-1.3) Estimated GFR (Cockcroft-Gault) 10.3 12.5 Glucose Level 96 mg/dL (70-99) 87 mg/dL (70-99) Calcium Level 8.1 mg/dL (8.5-10.1) 8.0 mg/dL (8.5-10.1) Phosphorus Level 3.3 mg/dL (2.6-4.7) 2.7 mg/dL (2.6-4.7) White Blood Count 12.7 x10^3/uL (4.0-11.0) Red Blood Count 4.07 x10^6/uL (4.30-5.70) Hemoglobin 12.4 g/dL (13.0-17.5) Hematocrit 38.3 % (39.0-53.0) Mean Corpuscular Volume 94 fL (79-100) Mean Corpuscular Hemoglobin 31 pg (25-35) Mean Corpuscular Hemoglobin Concent 32 g/dL (31-37) Red Cell Distribution Width 15.2 % (11.5-14.5) Platelet Count 127 x10^3/uL (140-400) Laboratory Tests Test 10/01/20 06:45 White Blood Count 12.7 x10^3/uL (4.0-11.0) Red Blood Count 4.07 x10^6/uL (4.30-5.70) Hemoglobin 12.4 g/dL (13.0-17.5) Hematocrit 38.3 % (39.0-53.0) Mean Corpuscular Volume 94 fL (79-100) Mean Corpuscular Hemoglobin 31 pg (25-35) Mean Corpuscular Hemoglobin Concent 32 g/dL (31-37) Red Cell Distribution Width 15.2 % (11.5-14.5) Platelet Count 127 x10^3/uL (140-400) Sodium Level 142 mmol/L (136-145) Potassium Level 4.0 mmol/L (3.5-5.1) Chloride Level 106 mmol/L (98-107) Carbon Dioxide Level 27 mmol/L (21-32) Anion Gap 9 (6-14) Blood Urea Nitrogen 31 mg/dL (8-26) Creatinine 5.9 mg/dL (0.7-1.3) Estimated GFR (Cockcroft-Gault) 12.5 Glucose Level 87 mg/dL (70-99) Calcium Level 8.0 mg/dL (8.5-10.1) Phosphorus Level 2.7 mg/dL (2.6-4.7) Brief Hospital Course Mr. Rajan is a 45 old male, admit HTN emergency, fluid overload, CHF, start hemodialysis here, right tunneled HD cath HD daily x2, then DC Discharge Information Condition at Discharge: Improved Follow Up: Weeks Disposition/Orders: D/C to Home Scheduled Amlodipine Besylate (Amlodipine Besylate) 10 Mg Tablet, 10 MG PO DAILY for htn, #30 Ref 2 Prescribed by: BRITTANY CHACKO on 10/01/20 1314 Aspirin (Aspirin Ec) 81 Mg Tablet.dr, 81 MG PO DAILYWBKFT for cardiac, #100 Prescribed by: BRITTANY CHACKO on 10/01/20 1314 Atorvastatin Calcium (Atorvastatin Calcium) 20 Mg Tablet, 20 MG PO QHS for cholesterol, #30 Ref 2 Prescribed by: BRITTANY CHACKO on 10/01/20 1314 Calcium Acetate (Calcium Acetate) 667 Mg Tablet, 1 TAB PO DAILY for ESRD for 30 Days, #30 Ref 0 Prescribed by: BRITTANY CHACKO on 10/01/20 1314 Carvedilol (Carvedilol ) 6.25 Mg Tablet, 12.5 MG PO BIDWMEALS for htn, #60 Ref 2 Prescribed by: BRITTANY CHACKO on 10/01/20 1314 Furosemide (Lasix) 80 Mg Tablet, 1 TAB PO DAILY for ESRD for 30 Days, Ref 0 Prescribed by: BRITTANY CHACKO on 10/01/20 1314 Isosorbide Mononitrate (Isosorbide Mononitrate Er) 30 Mg Tab.er.24h, 1 TAB PO DAILY for htn, #30 Ref 3 Prescribed by: BRITTANY CHACKO on 10/01/20 1314 Lisinopril (Lisinopril) 10 Mg Tablet, Unknown Dose PO DAILY, #30 Ref 5 (Reported) Entered as Reported by: MARTHA WALKER on 12/02/14 1353 Patient Instructions Patient Instructions pt seen face to face. many new meds cont current time 35 min Justicifation of Admission Dx: Justifications for Admission: Justification of Admission Dx: Yes BRITTANY CHACKO MD Oct 01, 2020 13:16
--- NOTE | 2020-10-01 13:35 | RAD ---
Procedure: Tunneled hemodialysis catheter placement 10/01/2020 11:31 AM Clinical Indication long-term dialysis access Sterility: All elements of maximal sterile barrier technique including the use of a cap, mask, sterile gown, sterile gloves, large sterile sheet, appropriate hand hygiene, and 2% chlorhexidine for cutaneous antisepsis (or acceptable alternative antiseptic per current guidelines) were followed for this procedure. Consent: The procedure was explained in its entirety to the patient or the patients designated senior customer service representative by a member of the treatment team, including a discussion of the risks, benefits and commonly accepted alternatives to the procedure, as well as the expected consequences of no therapy whatsoever. Discussion of the risks included, but was not limited to, those that are most frequent and those that are rare but possibly severe or life-threatening, as well as the possibility of unforeseen complications. Technique and Findings: Following informed consent, a timeout procedure was performed. The patient was prepped and draped in the usual sterile fashion. Ultrasound interrogation of the right neck revealed patency and compressibility of the right internal jugular vein. A 21-gauge micropuncture was then used to gain access to this vein under ultrasound guidance. A hard copy ultrasound image was recorded. The needle was exchanged over a wire for a 4 [place] sheath which was used to guide an guidewire into the IVC. The skin over the right anterior chest wall was copiously anesthetized with 1% Lidocaine and a small dermatotomy was made. A 23 cm tipped cuff palindrome tunneled hemodialysis catheter was then tunneled subcutaneously towards the neck dermatotomy and deployed through a large caliber peel-away sheath under fluoroscopic guidance such that the distal tip resided in the mid right atrium. Manual flow rates were assessed and found to be within normal limits. The catheter was then flushed, packed with Heparin, capped, and sutured to the skin. The neck dermatotomy was closed with Dermabond. No immediate complications were identified. Sedation: Conscious sedation was administered for 15 minutes. The patient was monitored by a qualified independent observer throughout the time of sedation. Please refer to the medical record for exact doses of medications utilized to achieve moderate sedation. Fluoroscopy time: 0.3 minutes Dose area product: 1 viramontes centimeters squared Impression: Tunneled hemodialysis catheter placement as described
--- NOTE | 2020-10-01 13:46 | PDOC ---
YAZAN BALLARD FISH CLEANER 10/01/20 1346: CARDIO Progress Notes Date and Time Date of Service 10/01/2020 Time of Evaluation 1330 Subjective Subjective: No Chest Pain, No shortness of breath, No Palpitations Vitals Vitals Vital Signs Date Time Temp Pulse Resp B/P (MAP) Pulse Ox O2 Delivery O2 Flow Rate FiO2 10/01/20 12:57 98 132/89 10/01/20 12:57 98.5 18 99 Room Air 98.5 Weight Weight [ ] Input and Output Intake and Output Intake and Output 10/01/20 07:00 Intake Total 750 ml Output Total 2515 ml Balance -1765 ml Intake Oral 750 ml Output Urine Total 2515 ml Laboratory Labs Laboratory Tests Test 10/01/20 06:45 White Blood Count 12.7 x10^3/uL (4.0-11.0) Red Blood Count 4.07 x10^6/uL (4.30-5.70) Hemoglobin 12.4 g/dL (13.0-17.5) Hematocrit 38.3 % (39.0-53.0) Mean Corpuscular Volume 94 fL (79-100) Mean Corpuscular Hemoglobin 31 pg (25-35) Mean Corpuscular Hemoglobin Concent 32 g/dL (31-37) Red Cell Distribution Width 15.2 % (11.5-14.5) Platelet Count 127 x10^3/uL (140-400) Sodium Level 142 mmol/L (136-145) Potassium Level 4.0 mmol/L (3.5-5.1) Chloride Level 106 mmol/L (98-107) Carbon Dioxide Level 27 mmol/L (21-32) Anion Gap 9 (6-14) Blood Urea Nitrogen 31 mg/dL (8-26) Creatinine 5.9 mg/dL (0.7-1.3) Estimated GFR (Cockcroft-Gault) 12.5 Glucose Level 87 mg/dL (70-99) Calcium Level 8.0 mg/dL (8.5-10.1) Phosphorus Level 2.7 mg/dL (2.6-4.7) Review of Systems Constitutional: yes: alert, oriented Ears/Nose/Throat: Yes: no symptom reported Eyes: Yes: no symptom reported Pulmonary: Yes dyspnea Cardiovascular: Yes edema Gastrointestional: Yes: no symptom reported Genitourinary: Yes: no symptom reported Musculoskeletal: Yes: no symptom reported Endocrine: Yes: no symptom reported Physical Exam HEENT: Neck Supple W Full Motion Chest: Symmetric LUNGS: Other (diminished bases) Heart: S1S2, RRR (SR/ST) Abdomen: Soft N/T Extremities: No Calf Tenderness, Other (1-2+ bilaterl LE pitting edema) Neurology: alert, oriented, follow commands Assessment Assessment 1. 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 BP better 2. 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 Acute on chronic CHF with likely combined systolic/diastolic CHF: compensated 4. HLP 5. Tobaccoism : heavy smoker and quit a month ago 6. Marijuana use 7. Noncompliance: last routine BP meds over a yr ago at least 8. Cardiomyopathy: EF 25-30% likely due to uncontrolled HTN. 9. Reactive sinus tachycardia: afebrile Recommendations 1. Continue lasix therapy. Fluid off loading per HD 2. Secondary prevention measures. Continue norvasc, increase coreg, hydralazine/imdur 3. Smoking and marijuana cessation. diet modification 4. Will arrange for ischemic workup as an outpt 5. ASA 6. Follow up on 11/25 at 2PM Justicifation of Admission Dx: Justifications for Admission: Justification of Admission Dx: Yes KANIKA SANTOS MD 10/01/20 1500: CARDIO Progress Notes Assessment Assessment Patient seen and examined. Agree with WOOL SHEARER's assessment and plan. Acute on chronic combined systolic and diastolic heart failure better compensated. 2D echo showed LVEF 25 to 30%. Continue fluid removal with hemodialysis per nephrology team Plan ischemic evaluation outpatient. YAZAN BALLARD APRN Oct 01, 2020 13:46 KANIKA SANTOS MD Oct 01, 2020 15:00
[2020-10-01 15:23] VITALS: BP 121/63
--- NOTE | 2020-10-01 16:33 | NUR ---
SS following up with discharge planning. SS followed up with [facility], ; fax [phone], and was notified that they are still working on financial approval and no confirmed chair time has been assigned at this time. [facility] given instructions to contact floor RN with confirmed chair time if received.
[2020-10-01] MEDS: CARVEDILOL 12.5 MG TABLET. PO SCH (17:28)
[2020-10-01 19:00] VITALS: BP 109/66
--- NOTE | 2020-10-01 19:35 | NUR ---
Pt in bed assessment completed vss poc explained pt denied pain at this time will resume care and continue to monitor pt.
[2020-10-01] MEDS: ATORVASTATIN CALCIUM 20 MG TABLET PO SCH (21:24)
[2020-10-01 23:00] VITALS: BP 98/58
[2020-10-01] MEDS: ZOLPIDEM 5 MG TABLET. PO PRN (23:15)
[2020-10-02 02:54] VITALS: BP 115/68
[2020-10-02] MEDS: HEPARIN for SUB-Q USE 5,000 UNIT/ML VIAL. SQ SCH ×3 (05:50→21:57)
[2020-10-02 07:00] VITALS: BP 109/76
[2020-10-02] MEDS: ASPIRIN ENTERIC COATED 81 MG TABLET.DR. PO SCH (08:00)
[2020-10-02] MEDS: CARVEDILOL 12.5 MG TABLET. PO SCH ×2 (08:00→17:06)
[2020-10-02 08:15] LABS: CALCIUM 7.7 mg/dL (8.5-10.1); CREATININE 5.2 mg/dL (0.7-1.3); GFR 14.5; POTASSIUM 3.8 mmol/L (3.5-5.1)
--- NOTE | 2020-10-02 08:32 | PDOC ---
DATE OF SERVICE DATE: 10/02/20 TIME: 08:31 SUBJECTIVE ROS Seen on dialysis, No acute concerns OBJECTIVE Vital Signs Vital Signs Date Time Temp Pulse Resp B/P (MAP) Pulse Ox O2 Delivery O2 Flow Rate FiO2 10/02/20 07:00 98.1 89 22 109/76 (87) 96 Room Air 98.1 I & 0 Intake and Output 10/02/20 07:00 Intake Total 1080 ml Output Total 1100 ml Balance -20 ml Intake Oral 1080 ml Output Urine Total 1100 ml PHYSICAL EXAM Physical Exam General Appearance: no apparent distress Skin: warm Respiratory: decreased breath sounds Heart: S1S2 Abdomen: soft Extremities: No edema Neurology: alert, oriented, follow commands DIAGNOSIS/ASSESSMENT Assessment & Plan NEW ESRD- suspect sec to HTN , Seen on dialysis, tolerating well, continue as ordered , Pardeep Lyman Awaiting OP placement, Currently on MWF schedule while inpatient Malignant HTN- improved Ac on Chronic CHF - On Lasix as well COMMENT/RELEVANT DATA Meds Current Medications Medications (Trade) Dose Ordered Sig/Lisandro Start Time Stop Time Status Last Admin Dose Admin Acetaminophen (Tylenol) 650 mg PRN Q6HRS PRN 09/28/20 20:30 Amlodipine Besylate (Norvasc) 10 mg DAILY 09/29/20 11:00 10/01/20 12:55 10 MG Aspirin (Baldo Aspirin) 325 mg DAILY ONCE 09/28/20 18:00 09/28/20 18:07 DC 09/28/20 18:14 325 MG Aspirin (Ecotrin) 81 mg DAILYWBKFT 09/30/20 12:00 10/01/20 12:55 81 MG Atorvastatin Calcium (Lipitor) 20 mg QHS 09/28/20 21:00 10/01/20 21:24 20 MG Carvedilol (Coreg) 25 mg BIDWMEALS 10/01/20 17:00 10/01/20 17:28 25 MG Cefazolin Sodium/ Dextrose 50 ml @ 100 mls/hr 1X ONCE 09/29/20 13:45 09/29/20 14:14 DC 09/29/20 13:45 100 MLS/HR Fentanyl Citrate (Fentanyl 2ml Vial) 75 mcg 1X ONCE 09/29/20 13:45 09/29/20 13:46 DC 09/29/20 13:45 75 MCG Furosemide (Lasix) 40 mg BID92 09/29/20 09:00 10/01/20 12:54 40 MG Heparin Sodium (Porcine) (Heparin Sodium) 5,000 unit Q8HRS 09/28/20 22:00 10/02/20 05:50 5,000 UNIT Hydralazine HCl (Apresoline Inj) 10 mg PRN Q4HRS PRN 09/28/20 18:00 09/29/20 03:32 10 MG Hydralazine HCl (Apresoline) 50 mg TID 09/28/20 21:00 10/01/20 21:25 50 MG Hydroxyzine HCl (Atarax) 10 mg PRN Q6HRS PRN 09/28/20 20:30 09/28/20 20:59 10 MG Info (PHARMACY MONITORING -- do not chart) 1 each PRN DAILY PRN 10/01/20 08:30 Isosorbide Mononitrate (Imdur) 60 mg DAILY 10/01/20 09:00 10/01/20 12:55 60 MG Lidocaine/ Epinephrine (LIDOCAINE 1%-EPI 1:100,000 Multi-Dose) 15 ml 1X ONCE 09/29/20 13:45 09/29/20 13:46 DC 09/29/20 13:45 15 ML Lidocaine/ Epinephrine (LIDOCAINE 2%-EPI 1:100,000 multi-dose) 20 ml STK-MED ONCE 09/29/20 12:51 09/29/20 12:52 DC Lisinopril (Prinivil) 10 mg DAILY 09/30/20 13:00 10/01/20 12:56 10 MG Midazolam HCl (Versed) 1 mg 1X ONCE 09/29/20 13:45 09/29/20 13:46 DC 09/29/20 13:45 1 MG Morphine Sulfate (Morphine Sulfate) 4 mg PRN Q2HR PRN 09/28/20 17:45 09/29/20 17:44 DC Nicotine (Nicoderm Cq 21mg) 1 patch PRN DAILY PRN 09/28/20 20:30 Nitroglycerin (Nitro-Bid Oint) 1 inch Q8HRS 09/28/20 22:00 09/28/20 22:01 DC 09/28/20 20:59 1 INCH Ondansetron HCl (Zofran) 4 mg PRN Q4HRS PRN 09/28/20 17:45 Perflutren Protein Type A Microsphe (Optison) 0.66 mg 1X ONCE 09/29/20 12:45 09/29/20 12:46 DC 09/29/20 12:37 0.66 MG Sodium Chloride 1,000 ml @ 400 mls/hr Q2H30M PRN 10/01/20 08:30 10/01/20 20:29 DC Zolpidem Tartrate (Ambien) 5 mg PRN QHS PRN 09/28/20 20:30 10/01/20 23:15 5 MG Lab Laboratory Tests Test 10/02/20 06:40 Sodium Level 142 mmol/L (136-145) Potassium Level 3.8 mmol/L (3.5-5.1) Chloride Level 105 mmol/L (98-107) Carbon Dioxide Level 28 mmol/L (21-32) Anion Gap 9 (6-14) Blood Urea Nitrogen 25 mg/dL (8-26) Creatinine 5.2 mg/dL (0.7-1.3) Estimated GFR (Cockcroft-Gault) 14.5 Glucose Level 83 mg/dL (70-99) Calcium Level 7.7 mg/dL (8.5-10.1) Results All relevant outside records, renal labs, imaging studies, telemetry/EKG's were reviewed. Justicifation of Admission Dx: Justifications for Admission: Justification of Admission Dx: Yes JUDY FLOYD MD October 02, 2020 08:32
[2020-10-02] MEDS ORDERED: DIALYSIS PATIENT. MC PRN (08:45)
[2020-10-02] MEDS ORDERED: diphenhydrAMINE 50 MG/ML VIAL IV PRN (08:45)
[2020-10-02] MEDS ORDERED: IV NORMAL SALINE 1000ML BAG 1,000 ML IV PRN (08:45)
[2020-10-02] MEDS: ISOSORBIDE MONONITRATE ER 30 MG TAB.ER.24H PO SCH (09:00)
[2020-10-02] MEDS: LISINOPRIL 10 MG TABLET PO SCH (09:00)
[2020-10-02] MEDS: FUROSEMIDE 40 MG/4 ML VIAL. IVP SCH ×2 (09:00→14:20)
[2020-10-02] MEDS: amLODIPine BESYLATE 10 MG TABLET PO SCH (09:00)
--- NOTE | 2020-10-02 10:48 | PDOC ---
[facility] [facility] PROGRESS NOTE Date of Service DOS: DATE: 10/02/20 TIME: 10:47 Chief Complaint Chief Complaint Hypertensive emergency - with acute CHF and renal failure poor renal function at baseline, could be ESRD Acute diastolic CHF - . Imdur/hydralazine, ASA, statin, BB LUCILLE - w. vasomotor nephropathy on prior CKD with htn could be ESRD Elevated troponin - demand ischemia Abnormal CXR - CHF Hyperglycemia - will check A1c, TSH tobacco use disorder, htn, prior poor compliance Anxiety - improved Dispo -inpatient History of Present Illness History of Present Illness tried to DC yesterday, did not get chair time for outpatient HD HD today still weak but feelign better he is having trouble adjusting to the RENAL diet looks good, no event e Vitals/I&O Vitals/I&O: Vital Signs Date Time Temp Pulse Resp B/P (MAP) Pulse Ox O2 Delivery O2 Flow Rate FiO2 10/02/20 08:21 Room Air 10/02/20 07:00 98.1 89 22 109/76 (87) 96 98.1 I & O 10/01/20 10/01/20 10/02/20 15:00 23:00 07:00 Intake Total 550 ml 480 ml 50 ml Output Total 600 ml 500 ml Balance -50 ml -20 ml 50 ml Physical Exam General: Alert, Oriented X3, Cooperative, No acute distress Heart: Regular rate, Other (+ S4) Abdomen: Normal bowel sounds Extremities: No cyanosis Skin: No breakdown, No significant lesion Labs Labs: Laboratory Tests Test 10/02/20 06:40 Sodium Level 142 mmol/L (136-145) Potassium Level 3.8 mmol/L (3.5-5.1) Chloride Level 105 mmol/L (98-107) Carbon Dioxide Level 28 mmol/L (21-32) Anion Gap 9 (6-14) Blood Urea Nitrogen 25 mg/dL (8-26) Creatinine 5.2 mg/dL (0.7-1.3) Estimated GFR (Cockcroft-Gault) 14.5 Glucose Level 83 mg/dL (70-99) Calcium Level 7.7 mg/dL (8.5-10.1) Assessment and Plan Assessmemt and Plan Problems Medical Problems: (1) Acute CHF Status: Acute (2) Acute kidney failure Status: Acute Comment Review of Relevant I have reviewed the following items karen (where applicable) has been applied. Medications: Current Medications Medications (Trade) Dose Ordered Sig/Lisandro Route PRN Reason Start Time Stop Time Status Last Admin Dose Admin Carvedilol (Coreg) 25 mg BIDWMEALS PO 10/01/20 17:00 10/01/20 17:28 Justifications for Admission Other Justification BRITTANY CHACKO MD October 02, 2020 10:48
[2020-10-02 12:10] VITALS: BP 125/80
--- NOTE | 2020-10-02 12:22 | NUR ---
RN NOTE morning medications not given as patient was in dialysis and will receive afternoon dose as ordered. 3L removed in dialysis patient has no complaints at this time. VSS, will continue to monitor.
[2020-10-02 14:46] VITALS: BP 122/45
[2020-10-02 19:43] VITALS: BP 95/75
[2020-10-02] MEDS: ATORVASTATIN CALCIUM 20 MG TABLET PO SCH (21:57)
[2020-10-02 22:59] VITALS: BP 97/61
[2020-10-03 03:02] VITALS: BP 114/73
[2020-10-03] MEDS: HEPARIN for SUB-Q USE 5,000 UNIT/ML VIAL. SQ SCH ×3 (05:49→21:43)
[2020-10-03 07:00] VITALS: BP 107/67
[2020-10-03] MEDS: CARVEDILOL 12.5 MG TABLET. PO SCH ×2 (07:49→17:18)
[2020-10-03] MEDS: ASPIRIN ENTERIC COATED 81 MG TABLET.DR. PO SCH (07:49)
[2020-10-03] MEDS: FUROSEMIDE 40 MG/4 ML VIAL. IVP SCH ×2 (09:00→14:40)
--- NOTE | 2020-10-03 09:31 | NUR ---
Pt's vitals checked by this RN. BP 99/63, HR 84. BP medications held at this time. Will recheck later and administer BP medications if pt within parameters.
[2020-10-03 11:00] VITALS: BP 106/64
[2020-10-03] MEDS: ISOSORBIDE MONONITRATE ER 30 MG TAB.ER.24H PO SCH (12:26)
[2020-10-03] MEDS: amLODIPine BESYLATE 10 MG TABLET PO SCH (12:27)
[2020-10-03] MEDS: LISINOPRIL 10 MG TABLET PO SCH (12:27)
--- NOTE | 2020-10-03 12:59 | PDOC ---
[facility] [facility] PROGRESS NOTE Date of Service DOS: DATE: 10/03/20 TIME: 12:59 Chief Complaint Chief Complaint Hypertensive emergency - with acute CHF and renal failure poor renal function at baseline, could be ESRD Acute diastolic CHF - . Imdur/hydralazine, ASA, statin, BB LUCILLE - w. vasomotor nephropathy on prior CKD with htn could be ESRD Elevated troponin - demand ischemia Abnormal CXR - CHF Hyperglycemia - will check A1c, TSH tobacco use disorder, htn, prior poor compliance Anxiety - improved Dispo -inpatient History of Present Illness History of Present Illness DC when chair time, still weak HD plan tomorrow. still weak but much better DC Tele he is having trouble adjusting to the RENAL diet looks good, no event e Vitals/I&O Vitals/I&O: Vital Signs Date Time Temp Pulse Resp B/P (MAP) Pulse Ox O2 Delivery O2 Flow Rate FiO2 10/03/20 12:27 93 106/64 10/03/20 11:00 98.4 20 98 Room Air 98.4 I & O 10/02/20 10/02/20 10/03/20 15:00 23:00 07:00 Intake Total 300 ml 720 ml 0 ml Output Total 450 ml Balance 300 ml 720 ml -450 ml Physical Exam General: Alert, Oriented X3, Cooperative, No acute distress Heart: Regular rate, Other (+ S4) Abdomen: Normal bowel sounds Extremities: No cyanosis Skin: No breakdown, No significant lesion Assessment and Plan Assessmemt and Plan Problems Medical Problems: (1) Acute CHF Status: Acute (2) Acute kidney failure Status: Acute Comment Review of Relevant I have reviewed the following items karen (where applicable) has been applied. Justifications for Admission Other Justification BRITTANY CHACKO MD October 03, 2020 12:59
--- NOTE | 2020-10-03 13:36 | PDOC ---
DATE OF SERVICE DATE: 10/03/20 TIME: 13:34 SUBJECTIVE ROS No complaints, wants to go home. OBJECTIVE Vital Signs Vital Signs Date Time Temp Pulse Resp B/P (MAP) Pulse Ox O2 Delivery O2 Flow Rate FiO2 10/03/20 12:27 93 106/64 10/03/20 11:00 98.4 20 98 Room Air 98.4 I & 0 Intake and Output 10/03/20 07:00 Intake Total 1020 ml Output Total 450 ml Balance 570 ml Intake Oral 1020 ml Output Urine Total 450 ml # Voids 2 PHYSICAL EXAM Physical Exam General Appearance: no apparent distress Skin: warm Respiratory: decreased breath sounds Heart: S1S2 Abdomen: soft Extremities: No edema Neurology: alert, oriented, follow commands DIAGNOSIS/ASSESSMENT Assessment & Plan NEW ESRD- suspect sec to HTN , Scheduled for MWF while inpatient , extra t reatment yesterday , currently no indication Awaiting OP chair time Malignant HTN- improved Ac on Chronic CHF - On Lasix as well COMMENT/RELEVANT DATA Meds Current Medications Medications (Trade) Dose Ordered Sig/Lisandro Start Time Stop Time Status Last Admin Dose Admin Acetaminophen (Tylenol) 650 mg PRN Q6HRS PRN 09/28/20 20:30 Amlodipine Besylate (Norvasc) 10 mg DAILY 09/29/20 11:00 10/03/20 12:27 10 MG Aspirin (Baldo Aspirin) 325 mg DAILY ONCE 09/28/20 18:00 09/28/20 18:07 DC 09/28/20 18:14 325 MG Aspirin (Ecotrin) 81 mg DAILYWBKFT 09/30/20 12:00 10/03/20 07:49 81 MG Atorvastatin Calcium (Lipitor) 20 mg QHS 09/28/20 21:00 10/02/20 21:57 20 MG Carvedilol (Coreg) 25 mg BIDWMEALS 10/01/20 17:00 10/03/20 07:49 25 MG Cefazolin Sodium/ Dextrose 50 ml @ 100 mls/hr 1X ONCE 09/29/20 13:45 09/29/20 14:14 DC 09/29/20 13:45 100 MLS/HR Diphenhydramine HCl (Benadryl) 25 mg 1X PRN PRN 10/02/20 08:45 10/03/20 08:44 DC Fentanyl Citrate (Fentanyl 2ml Vial) 75 mcg 1X ONCE 09/29/20 13:45 09/29/20 13:46 DC 09/29/20 13:45 75 MCG Furosemide (Lasix) 40 mg BID92 09/29/20 09:00 10/02/20 14:20 40 MG Heparin Sodium (Porcine) (Heparin Sodium) 5,000 unit Q8HRS 09/28/20 22:00 10/03/20 05:49 5,000 UNIT Hydralazine HCl (Apresoline Inj) 10 mg PRN Q4HRS PRN 09/28/20 18:00 09/29/20 03:32 10 MG Hydralazine HCl (Apresoline) 50 mg TID 09/28/20 21:00 10/01/20 21:25 50 MG Hydroxyzine HCl (Atarax) 10 mg PRN Q6HRS PRN 09/28/20 20:30 09/28/20 20:59 10 MG Info (PHARMACY MONITORING -- do not chart) 1 each PRN DAILY PRN 10/02/20 08:45 Isosorbide Mononitrate (Imdur) 60 mg DAILY 10/01/20 09:00 10/03/20 12:26 60 MG Lidocaine/ Epinephrine (LIDOCAINE 1%-EPI 1:100,000 Multi-Dose) 15 ml 1X ONCE 09/29/20 13:45 09/29/20 13:46 DC 09/29/20 13:45 15 ML Lidocaine/ Epinephrine (LIDOCAINE 2%-EPI 1:100,000 multi-dose) 20 ml STK-MED ONCE 09/29/20 12:51 09/29/20 12:52 DC Lisinopril (Prinivil) 10 mg DAILY 09/30/20 13:00 10/03/20 12:27 10 MG Midazolam HCl (Versed) 1 mg 1X ONCE 09/29/20 13:45 09/29/20 13:46 DC 09/29/20 13:45 1 MG Morphine Sulfate (Morphine Sulfate) 4 mg PRN Q2HR PRN 09/28/20 17:45 09/29/20 17:44 DC Nicotine (Nicoderm Cq 21mg) 1 patch PRN DAILY PRN 09/28/20 20:30 Nitroglycerin (Nitro-Bid Oint) 1 inch Q8HRS 09/28/20 22:00 09/28/20 22:01 DC 09/28/20 20:59 1 INCH Ondansetron HCl (Zofran) 4 mg PRN Q4HRS PRN 09/28/20 17:45 Perflutren Protein Type A Microsphe (Optison) 0.66 mg 1X ONCE 09/29/20 12:45 09/29/20 12:46 DC 09/29/20 12:37 0.66 MG Sodium Chloride 1,000 ml @ 1,000 mls/hr Q1H PRN 10/02/20 08:45 10/02/20 14:44 DC Zolpidem Tartrate (Ambien) 5 mg PRN QHS PRN 09/28/20 20:30 10/01/20 23:15 5 MG Results All relevant outside records, renal labs, imaging studies, telemetry/EKG's were reviewed. Justicifation of Admission Dx: Justifications for Admission: Justification of Admission Dx: Yes JUDY FLOYD MD October 03, 2020 13:36
[2020-10-03 15:00] VITALS: BP 103/59
[2020-10-03 19:56] VITALS: BP 109/67
[2020-10-03] MEDS: ATORVASTATIN CALCIUM 20 MG TABLET PO SCH (21:43)
[2020-10-03 22:49] VITALS: BP 120/77
--- NOTE | 2020-10-04 02:50 | NUR ---
TRANSFER Patient transferred from room 205 via WC. Report rcvd. from PETTY Gruber. All patient's belongings left in room with patient at time of transfer to unit. Patient orientated to room, bed in lowest/locked position, and call light within reach; no other needs voiced by patient at this time.
[2020-10-04 03:00] VITALS: BP 120/71
[2020-10-04] MEDS: HEPARIN for SUB-Q USE 5,000 UNIT/ML VIAL. SQ SCH (06:22)
[2020-10-04 06:38] LABS: CALCIUM 8.1 mg/dL (8.5-10.1); CREATININE 5.7 mg/dL (0.7-1.3); POTASSIUM 3.4 mmol/L (3.5-5.1)
[2020-10-04 07:00] VITALS: BP 120/76
[2020-10-04] MEDS ORDERED: IV NORMAL SALINE 1000ML BAG 1,000 ML IV PRN ×2 (07:45)
[2020-10-04] MEDS ORDERED: DIALYSIS PATIENT. MC PRN (07:45)
[2020-10-04] MEDS: ASPIRIN ENTERIC COATED 81 MG TABLET.DR. PO SCH (08:00)
[2020-10-04] MEDS: CARVEDILOL 12.5 MG TABLET. PO SCH (08:00)
[2020-10-04] MEDS: FUROSEMIDE 40 MG/4 ML VIAL. IVP SCH (09:00)
--- NOTE | 2020-10-04 11:08 | NUR ---
SW following. Discussed with RN, pt awaiting dialysis chair time over weekend. [facility] notified Aliya (ARNOLD) chair time at [facility] Sunday, Sunday, Sunday at 1630. Start day at SundayOctober 06. RN notified. Discharge home today after dialysis.
--- NOTE | 2020-10-04 11:38 | PDOC ---
PROGRESS NOTES Date of Service: DATE: 10/04/20 TIME: 11:37 Chief Complaint Chief Complaint Hypertensive emergency - with acute CHF and renal failure poor renal function at baseline, could be ESRD Acute diastolic CHF - . Imdur/hydralazine, ASA, statin, BB LUCILLE - w. vasomotor nephropathy on prior CKD with htn could be ESRD Elevated troponin - demand ischemia Abnormal CXR - CHF Hyperglycemia - will check A1c, TSH tobacco use disorder, htn, prior poor compliance Anxiety - improved Dispo -inpatient History of Present Illness History of Present Illness DC when chair time, still weak HD plan tomorrow. still weak but much better DC Tele he is having trouble adjusting to the RENAL diet looks good, no event 503 AWAIT CHAIR TIME D/W RN seen in dialysis today cr 5.7 Acute diastolic CHF - . Imdur/hydralazine, ASA, statin, BB LUCILLE - ESRD Elevated troponin - demand ischemia Vitals Vitals Vital Signs Date Time Temp Pulse Resp B/P (MAP) Pulse Ox O2 Delivery O2 Flow Rate FiO2 10/04/20 07:35 Room Air 10/04/20 07:00 97.6 83 19 120/76 (91) 96 97.6 Physical Exam General: Alert, Oriented X3, Cooperative, No acute distress Heart: Regular rate, Other (+ S4) Abdomen: Normal bowel sounds Extremities: No cyanosis Skin: No breakdown, No significant lesion Labs LABS Laboratory Tests Test 10/04/20 04:20 Sodium Level 144 mmol/L (136-145) Potassium Level 3.4 mmol/L (3.5-5.1) Chloride Level 108 mmol/L (98-107) Carbon Dioxide Level 27 mmol/L (21-32) Anion Gap 9 (6-14) Blood Urea Nitrogen 23 mg/dL (8-26) Creatinine 5.7 mg/dL (0.7-1.3) Estimated GFR (Cockcroft-Gault) 13.0 Glucose Level 88 mg/dL (70-99) Calcium Level 8.1 mg/dL (8.5-10.1) Assessment and Plan Assessmemt and Plan Problems Medical Problems: (1) Acute CHF Status: Acute (2) Acute kidney failure Status: Acute Comment Review of Relevant I have reviewed the following items karen (where applicable) has been applied. Labs Laboratory Tests Test 10/04/20 04:20 Sodium Level 144 mmol/L (136-145) Potassium Level 3.4 mmol/L (3.5-5.1) Chloride Level 108 mmol/L (98-107) Carbon Dioxide Level 27 mmol/L (21-32) Anion Gap 9 (6-14) Blood Urea Nitrogen 23 mg/dL (8-26) Creatinine 5.7 mg/dL (0.7-1.3) Estimated GFR (Cockcroft-Gault) 13.0 Glucose Level 88 mg/dL (70-99) Calcium Level 8.1 mg/dL (8.5-10.1) Laboratory Tests Test 10/04/20 04:20 Sodium Level 144 mmol/L (136-145) Potassium Level 3.4 mmol/L (3.5-5.1) Chloride Level 108 mmol/L (98-107) Carbon Dioxide Level 27 mmol/L (21-32) Anion Gap 9 (6-14) Blood Urea Nitrogen 23 mg/dL (8-26) Creatinine 5.7 mg/dL (0.7-1.3) Estimated GFR (Cockcroft-Gault) 13.0 Glucose Level 88 mg/dL (70-99) Calcium Level 8.1 mg/dL (8.5-10.1) Medications Current Medications Furosemide (Lasix) 40 mg 1X ONCE IVP Last administered on 09/28/20at 18:14; Start 09/28/20 at 17:45; Stop 09/28/20 at 17:46; Status DC Ondansetron HCl (Zofran) 4 mg PRN Q8HRS PRN IV NAUSEA/VOMITING; Start 09/28/20 at 17:45; Stop 09/28/20 at 17:44; Status DC Morphine Sulfate (Morphine Sulfate) 4 mg PRN Q2HR PRN IV PAIN; Start 09/28/20 at 17:45; Stop 09/29/20 at 17:44; Status DC Ondansetron HCl (Zofran) 4 mg PRN Q4HRS PRN IV NAUSEA/VOMITING; Start 09/28/20 at 17:45 Hydralazine HCl (Apresoline Inj) 10 mg PRN Q4HRS PRN IVP HTN Last administered on 09/29/20at 03:32; Start 09/28/20 at 18:00 Atorvastatin Calcium (Lipitor) 20 mg QHS PO Last administered on 10/03/20 21:43; Start 09/28/20 at 21:00 Heparin Sodium (Porcine) (Heparin Sodium) 5,000 unit Q8HRS SQ Last administered on 10/04/20 06:22; Start 09/28/20 at 22:00 Aspirin (Baldo Aspirin) 325 mg DAILY ONCE PO Last administered on 09/28/20 18:14; Start 09/28/20 at 18:00; Stop 09/28/20 at 18:07; Status DC Furosemide (Lasix) 40 mg BID92 IVP Last administered on 10/03/20 14:40; Start 09/29/20 at 09:00 Zolpidem Tartrate (Ambien) 5 mg PRN QHS PRN PO INSOMNIA Last administered on 10/01/20 23:15; Start 09/28/20 at 20:30 Hydroxyzine HCl (Atarax) 10 mg PRN Q6HRS PRN PO ITCHING Last administered on 09/28/20at 20:59; Start 09/28/20 at 20:30 Nicotine (Nicoderm Cq 21mg) 1 patch PRN DAILY PRN TD SMOKING CESSATION; Start 09/28/20 at 20:30 Acetaminophen (Tylenol) 650 mg PRN Q6HRS PRN PO MILD PAIN / TEMP > 100.3'F; Start 09/28/20 at 20:30 Nitroglycerin (Nitro-Bid Oint) 1 inch Q8HRS TP Last administered on 09/28/20at 20:59; Start 09/28/20 at 22:00; Stop 09/28/20 at 22:01; Status DC Isosorbide Mononitrate (Imdur) 30 mg DAILY PO Last administered on 09/30/20at 15:04; Start 09/29/20 at 09:00; Stop 09/30/20 at 16:09; Status DC Hydralazine HCl (Apresoline) 50 mg TID PO Last administered on 10/03/20 21:44; Start 09/28/20 at 21:00 Amlodipine Besylate (Norvasc) 10 mg DAILY PO Last administered on 10/03/20at 12:27; Start 09/29/20 at 11:00 Carvedilol (Coreg) 6.25 mg BIDWMEALS PO Last administered on 09/29/20at 18:20; Start 09/29/20 at 11:30; Stop 09/30/20 at 16:09; Status DC Perflutren Protein Type A Microsphe (Optison) 0.66 mg STK-MED ONCE IV ; Start 09/29/20 at 12:24; Stop 09/29/20 at 12:25; Status DC Perflutren Protein Type A Microsphe (Optison) 0.66 mg 1X ONCE IV Last administered on 09/29/20at 12:37; Start 09/29/20 at 12:45; Stop 09/29/20 at 12:46; Status DC Lidocaine/ Epinephrine (LIDOCAINE 2%-EPI 1:100,000 multi-dose) 20 ml STK-MED ONCE .ROUTE ; Start 09/29/20 at 12:51; Stop 09/29/20 at 12:52; Status DC Midazolam HCl (Versed) 2 mg STK-MED ONCE .ROUTE ; Start 09/29/20 at 13:14; Stop 09/29/20 at 13:15; Status DC Fentanyl Citrate (Fentanyl 2ml Vial) 100 mcg STK-MED ONCE .ROUTE ; Start 09/29 at 13:14; Stop 09/29/20 at 13:15; Status DC Cefazolin Sodium/ Dextrose 50 ml @ As Directed STK-MED ONCE IV ; Start 09/29/20 at 13:21; Stop 09/29/20 at 13:22; Status DC Midazolam HCl (Versed) 1 mg 1X ONCE IV Last administered on 09/29/20at 13:45; Start 09/29/20 at 13:45; Stop 09/29/20 at 13:46; Status DC Fentanyl Citrate (Fentanyl 2ml Vial) 75 mcg 1X ONCE IV Last administered on 09/29/20at 13:45; Start 09/29/20 at 13:45; Stop 09/29/20 at 13:46; Status DC Lidocaine/ Epinephrine (LIDOCAINE 1%-EPI 1:100,000 Multi-Dose) 15 ml 1X ONCE INJ Last administered on 09/29/20at 13:45; Start 09/29/20 at 13:45; Stop 09/29/20 at 13:46; Status DC Cefazolin Sodium/ Dextrose 50 ml @ 100 mls/hr 1X ONCE IV Last administered on 09/29/20at 13:45; Start 09/29/20 at 13:45; Stop 09/29/20 at 14:14; Status DC Aspirin (Ecotrin) 81 mg DAILYWBKFT PO Last administered on 10/03/20at 07:49; Start 09/30/20 at 12:00 Lisinopril (Prinivil) 10 mg DAILY PO Last administered on 10/03/20at 12:27; Start 09/30/20 at 13:00 Carvedilol (Coreg) 12.5 mg BIDWMEALS PO Last administered on 10/01/20at 12:56; Start 09/30/20 at 17:00; Stop 10/01/20 at 13:44; Status DC Isosorbide Mononitrate (Imdur) 60 mg DAILY PO Last administered on 10/03/20at 12:26; Start 10/01/20 at 09:00 Sodium Chloride 1,000 ml @ 1,000 mls/hr Q1H PRN IV hypotension; Start 10/01/20 at 08:30; Stop 10/01/20 at 14:29; Status DC Sodium Chloride 1,000 ml @ 400 mls/hr Q2H30M PRN IV PATENCY; Start 10/01/20 at 08:30; Stop 10/01/20 at 20:29; Status DC Info (PHARMACY MONITORING -- do not chart) 1 each PRN DAILY PRN MC SEE COMMENTS; Start 10/01/20 at 08:30; Stop 10/02/20 at 08:48; Status DC Carvedilol (Coreg) 25 mg BIDWMEALS PO Last administered on 10/03/20at 17:18; Start 10/01/20 at 17:00 Sodium Chloride 1,000 ml @ 1,000 mls/hr Q1H PRN IV hypotension; Start 10/02/20 at 08:45; Stop 10/02/20 at 14:44; Status DC Diphenhydramine HCl (Benadryl) 25 mg 1X PRN PRN IV ITCHING; Start 10/02/20 at 08:45; Stop 10/03/20 at 08:44; Status DC Info (PHARMACY MONITORING -- do not chart) 1 each PRN DAILY PRN MC SEE COMMENTS; Start 10/02/20 at 08:45 Sodium Chloride 1,000 ml @ 1,000 mls/hr Q1H PRN IV hypotension; Start 10/04/20 at 07:45; Stop 10/04/20 at 13:44 Sodium Chloride 1,000 ml @ 400 mls/hr Q2H30M PRN IV PATENCY; Start 10/04/20 at 07:45; Stop 10/04/20 at 19:44 Info (PHARMACY MONITORING -- do not chart) 1 each PRN DAILY PRN MC SEE COMMENTS; Start 10/04/20 at 07:45; Status UNV Active Scripts Active Calcium Acetate 667 Mg Tablet 1 Tab PO DAILY 30 Days Isosorbide Mononitrate Er (Isosorbide Mononitrate) 30 Mg Tab.er.24h 1 Tab PO DAILY Lasix (Furosemide) 80 Mg Tablet 1 Tab PO DAILY 30 Days Aspirin Ec (Aspirin) 81 Mg Tablet.dr 81 Mg PO DAILYWBKFT Atorvastatin Calcium 20 Mg Tablet 20 Mg PO QHS Carvedilol (Carvedilol) 6.25 Mg Tablet 12.5 Mg PO BIDWMEALS Amlodipine Besylate 10 Mg Tablet 10 Mg PO DAILY Reported Lisinopril 10 Mg Tablet Unknown Dose PO DAILY Vitals/I & O Vital Sign - Last 24 Hours 10/03/20 10/03/20 10/03/20 10/03/20 12:26 12:27 12:27 14:41 Pulse 93 93 93 83 B/P (MAP) 106/64 106/64 106/64 103/59 10/03/20 10/03/20 10/03/20 10/03/20 15:00 17:18 19:56 20:10 Temp 97.5 97.4 97.5 97.4 Pulse 83 80 81 Resp 18 18 B/P (MAP) 103/59 (74) 111/71 109/67 (81) Pulse Ox 97 95 O2 Delivery Room Air Room Air Room Air 10/03/20 10/03/20 10/04/20 10/04/20 21:44 22:49 03:00 07:00 Temp 97.7 98.2 97.6 97.7 98.2 97.6 Pulse 81 73 78 83 Resp 16 18 19 B/P (MAP) 109/67 120/77 (91) 120/71 (87) 120/76 (91) Pulse Ox 97 95 96 O2 Delivery Room Air Room Air Room Air 10/04/20 07:35 O2 Delivery Room Air Intake and Output 10/03/20 10/03/20 10/04/20 15:00 23:00 07:00 Intake Total 600 ml 780 ml 0 ml Output Total 1050 ml 800 ml Balance -450 ml -20 ml 0 ml Justicifation of Admission Dx: Justifications for Admission: Justification of Admission Dx: Yes CRISTIAN DONATO MD October 04, 2020 11:38
--- NOTE | 2020-10-04 12:03 | PDOC ---
DATE OF SERVICE DATE: 10/04/20 TIME: 12:01 SUBJECTIVE ROS Seen during treatment No complaints, OBJECTIVE Vital Signs Vital Signs Date Time Temp Pulse Resp B/P (MAP) Pulse Ox O2 Delivery O2 Flow Rate FiO2 10/04/20 07:35 Room Air 10/04/20 07:00 97.6 83 19 120/76 (91) 96 97.6 I & 0 Intake and Output 10/04/20 07:00 Intake Total 1380 ml Output Total 1850 ml Balance -470 ml Intake Oral 1380 ml Output Urine Total 1850 ml # Voids 2 PHYSICAL EXAM Physical Exam General Appearance: no apparent distress Skin: warm Respiratory: decreased breath sounds Heart: S1S2 Abdomen: soft Extremities: No edema Neurology: alert, oriented, follow commands DIAGNOSIS/ASSESSMENT Assessment & Plan NEW ESRD- suspect sec to HTN , Scheduled for MWF while inpatient , seen on dialysis, tolerating well, continue as ordered, Pardeep Lyman OP chair time @ [facility] Malignant HTN- improved Ac on Chronic CHF - On Lasix as well COMMENT/RELEVANT DATA Meds Current Medications Medications (Trade) Dose Ordered Sig/Lisandro Start Time Stop Time Status Last Admin Dose Admin Acetaminophen (Tylenol) 650 mg PRN Q6HRS PRN 09/28/20 20:30 Amlodipine Besylate (Norvasc) 10 mg DAILY 09/29/20 11:00 10/03/20 12:27 10 MG Aspirin (Baldo Aspirin) 325 mg DAILY ONCE 09/28/20 18:00 09/28/20 18:07 DC 09/28/20 18:14 325 MG Aspirin (Ecotrin) 81 mg DAILYWBKFT 09/30/20 12:00 10/03/20 07:49 81 MG Atorvastatin Calcium (Lipitor) 20 mg QHS 09/28/20 21:00 10/03/20 21:43 20 MG Carvedilol (Coreg) 25 mg BIDWMEALS 10/01/20 17:00 10/03/20 17:18 25 MG Cefazolin Sodium/ Dextrose 50 ml @ 100 mls/hr 1X ONCE 09/29/20 13:45 09/29/20 14:14 DC 09/29/20 13:45 100 MLS/HR Diphenhydramine HCl (Benadryl) 25 mg 1X PRN PRN 10/02/20 08:45 10/03/20 08:44 DC Fentanyl Citrate (Fentanyl 2ml Vial) 75 mcg 1X ONCE 09/29/20 13:45 09/29/20 13:46 DC 09/29/20 13:45 75 MCG Furosemide (Lasix) 40 mg BID92 09/29/20 09:00 10/03/20 14:40 40 MG Heparin Sodium (Porcine) (Heparin Sodium) 5,000 unit Q8HRS 09/28/20 22:00 10/04/20 06:22 5,000 UNIT Hydralazine HCl (Apresoline Inj) 10 mg PRN Q4HRS PRN 09/28/20 18:00 09/29/20 03:32 10 MG Hydralazine HCl (Apresoline) 50 mg TID 09/28/20 21:00 10/03/20 21:44 50 MG Hydroxyzine HCl (Atarax) 10 mg PRN Q6HRS PRN 09/28/20 20:30 09/28/20 20:59 10 MG Info (PHARMACY MONITORING -- do not chart) 1 each PRN DAILY PRN 10/04/20 07:45 UNV Isosorbide Mononitrate (Imdur) 60 mg DAILY 10/01/20 09:00 10/03/20 12:26 60 MG Lidocaine/ Epinephrine (LIDOCAINE 1%-EPI 1:100,000 Multi-Dose) 15 ml 1X ONCE 09/29/20 13:45 09/29/20 13:46 DC 09/29/20 13:45 15 ML Lidocaine/ Epinephrine (LIDOCAINE 2%-EPI 1:100,000 multi-dose) 20 ml STK-MED ONCE 09/29/20 12:51 09/29/20 12:52 DC Lisinopril (Prinivil) 10 mg DAILY 09/30/20 13:00 10/03/20 12:27 10 MG Midazolam HCl (Versed) 1 mg 1X ONCE 09/29/20 13:45 09/29/20 13:46 DC 09/29/20 13:45 1 MG Morphine Sulfate (Morphine Sulfate) 4 mg PRN Q2HR PRN 09/28/20 17:45 09/29/20 17:44 DC Nicotine (Nicoderm Cq 21mg) 1 patch PRN DAILY PRN 09/28/20 20:30 Nitroglycerin (Nitro-Bid Oint) 1 inch Q8HRS 09/28/20 22:00 09/28/20 22:01 DC 09/28/20 20:59 1 INCH Ondansetron HCl (Zofran) 4 mg PRN Q4HRS PRN 09/28/20 17:45 Perflutren Protein Type A Microsphe (Optison) 0.66 mg 1X ONCE 09/29/20 12:45 09/29/20 12:46 DC 09/29/20 12:37 0.66 MG Sodium Chloride 1,000 ml @ 400 mls/hr Q2H30M PRN 10/04/20 07:45 10/04/20 19:44 Zolpidem Tartrate (Ambien) 5 mg PRN QHS PRN 09/28/20 20:30 10/01/20 23:15 5 MG Lab Laboratory Tests Test 10/04/20 04:20 Sodium Level 144 mmol/L (136-145) Potassium Level 3.4 mmol/L (3.5-5.1) Chloride Level 108 mmol/L (98-107) Carbon Dioxide Level 27 mmol/L (21-32) Anion Gap 9 (6-14) Blood Urea Nitrogen 23 mg/dL (8-26) Creatinine 5.7 mg/dL (0.7-1.3) Estimated GFR (Cockcroft-Gault) 13.0 Glucose Level 88 mg/dL (70-99) Calcium Level 8.1 mg/dL (8.5-10.1) Results All relevant outside records, renal labs, imaging studies, telemetry/EKG's were reviewed. Justicifation of Admission Dx: Justifications for Admission: Justification of Admission Dx: Yes JUDY FLOYD MD October 04, 2020 12:03
[2020-10-04] MEDS: ISOSORBIDE MONONITRATE ER 30 MG TAB.ER.24H PO SCH (13:04)
[2020-10-04] MEDS: LISINOPRIL 10 MG TABLET PO SCH (13:05)
[2020-10-04 13:09] VITALS: BP 120/76
[2020-10-04] MEDS: amLODIPine BESYLATE 10 MG TABLET PO SCH (13:09)
--- NOTE | 2020-10-04 13:50 | NUR ---
Patient discharged home today with self care, via ambulation, accompanied by aid and family member. Patient is stable, IV removed, prescriptions, and discharge paperwork given to patient. Patient verbalized understanding of follow up and discharge instruction.
== END 2020-10-04 14:04 | disposition home or self-care (01) | DRG 673 ==
LOC: ER 15:34 → 2 NORTH 17:21 → ER 19:10 → OBSVTOIN 20:27 → 4 NORTH 10-04 02:46
PROVIDERS: ADMIT Internal Medicine; ATTEND Internal Medicine
PROC: 5A1D70Z Performance of Urinary Filtration, Intermittent, Less than 6 Hours Per Day (ICD-10-PCS; 2020-10-01)
PROC: 0JH63XZ Insertion of Tunneled Vascular Access Device into Chest Subcutaneous Tissue and Fascia, Percutaneous Approach (ICD-10-PCS; 2020-10-01)
PROC: 02H633Z Insertion of Infusion Device into Right Atrium, Percutaneous Approach (ICD-10-PCS; 2020-10-01)
PROC: B5181ZA Fluoroscopy of Superior Vena Cava using Low Osmolar Contrast, Guidance (ICD-10-PCS; 2020-10-01)
PROC: B548ZZA Ultrasonography of Superior Vena Cava, Guidance (ICD-10-PCS; 2020-10-01)
PROC: 5A1D70Z Performance of Urinary Filtration, Intermittent, Less than 6 Hours Per Day (ICD-10-PCS; 2020-10-02)
PROC: 5A1D70Z Performance of Urinary Filtration, Intermittent, Less than 6 Hours Per Day (ICD-10-PCS; principal; 2020-10-04)
DX: N17.0 Acute kidney failure with tubular necrosis (principal); I50.43 Acute on chronic combined systolic (congestive) and diastolic (congestive) heart failure; I13.2 Hypertensive heart and chronic kidney disease with heart failure and with stage 5 chronic kidney disease, or end stage renal disease; I16.1 Hypertensive emergency; I24.8 Other forms of acute ischemic heart disease; I42.9 Cardiomyopathy, unspecified; N18.6 End stage renal disease; E78.5 Hyperlipidemia, unspecified; F12.90 Cannabis use, unspecified, uncomplicated; F17.210 Nicotine dependence, cigarettes, uncomplicated; F41.9 Anxiety disorder, unspecified; I15.8 Other secondary hypertension; Z82.49 Family history of ischemic heart disease and other diseases of the circulatory system; Z91.19 Patient's noncompliance with other medical treatment and regimen; Z99.2 Dependence on renal dialysis; R73.9 Hyperglycemia, unspecified
CPT/HCPCS: 96374; 99285; C8929; 36415; 36558; 71045; 76770; 76937; 77001; 80048; 80053; 80061; 80307; 81001; 83690; 83735; 83880; 84100; 84443; 84484; 85025; 85027; 85610; 86704; 86706; 87340; 87426; 93005; 99152; C1750; C1892; G0378; G0379; J0360; J0690; J1644; J1940; J2250; J3010; J3490; Q9956